=== PATIENT | female | born 1945 | race Caucasian/White ===

== ENCOUNTER 2018-05-03 12:39 | Inpatient (IN) | payer MEDICARE ==
[~2018-05-03] VITALS: Ht 152.4 cm; Wt 44.5 kg
[~2018-05-03 12:39] MED LIST: ASPIRIN EC325 M1; BUSPIRONE HCL10 MG PO; KEFLEX250 MG PO; LIBRAX; LIPITOR10 MG; MOBIC15 MG; MOBIC15 MG PO; NORVASC2.5 MG; ORADENT 0.1% DEN5 G1; PROAIR HFA8.5 GM; SYNTHROID50 MCG PO; TYLENOL EX-STR500 M2; TYLENOL325 MG; VALIUM10 MG PO; ZANAFLEX4 M1 PO
[2018-05-03 13:23] LABS: HEMOGLOBIN 14.1 gm/dL (12.0-15.0); MCH 31.7 pg (26.0-34.0); MCHC 33.5 g/dL (28.0-37.0); MCV 94.8 fL (80.0-100.0); MPV 7.9 fl. (7.2-11.1); RBC 4.43 mil/uL (4.20-5.00); RDW-CV 11.8 % (10.5-14.5); WBC 11.7 thou/uL (4.0-11.0)
[2018-05-03 13:42] LABS: ALBUMIN 3.7 g/dL (3.4-5.0); ALKALINE PHOSPHATASE 73 U/L (46-116); ANION GAP 4 mmol/L (7-16); BUN 14 mg/dL (7-18); CALCIUM 8.9 mg/dL (8.5-10.1); CHLORIDE 97 mmol/L (98-107); CO2 31 mmol/L (21-32); CREATININE 0.7 mg/dL (0.6-1.3); GLUCOSE 108 mg/dL (70-99); MAGNESIUM 1.8 mg/dL (1.8-2.4); POTASSIUM 3.5 mmol/L (3.5-5.1); SGOT 53 U/L (15-37); SGPT 56 U/L (30-65); SODIUM 132 mmol/L (136-145); TOTAL BILIRUBIN 0.5 mg/dL (<0.1-1.0); TOTAL PROTEIN 6.9 g/dL (6.4-8.2); TROPONIN-I LEVEL <0.06 ng/mL (<0.06)
--- NOTE | 2018-05-03 14:22 | NUR ---
Pt is A&O. Resides at home alone. Independent with ADLs, Pt stated that she continues to drive. A friend assists with cleaning and she either eats out or prepares freezer meals. Pt also receives Meals on Wheels. Shaista does grocery shopping. Pt uses a cane for mobility. No hx of or SNF. Goal is to return home at nm. Following.
[2018-05-03 16:14] VITALS: BP 139/48
[2018-05-03] MEDS ORDERED: CENTRUM SILVER1 EAC4 PO (16:48)
[2018-05-03] MEDS ORDERED: FIBER0.4 GM (16:49)
[2018-05-03] MEDS ORDERED: ZANTAC 150MG T150 MG PO (16:50)
--- NOTE | 2018-05-03 17:17 | NUR ---
PT ADMITTED FROM GI LAB AFTER COLONOSCOPY/EGD WITH BRADYCARDIA AND 2ND DEGREE HEART BLOCK. HRIR 45, TELE MOBITZ II. PT DENIES PAIN OR SOA. REPORTS FATIGUE. PT ORIENTED TO ROOM, PT ABLE TO MAKE NEEDS KNOWN, CALL LIGHT IN REACH
[2018-05-03 21:30] VITALS: BP 161/71
[2018-05-04] VITALS (11 sets, daily range): BP systolic 92–154; BP diastolic 47–63
--- NOTE | 2018-05-04 05:06 | NUR ---
ASSUMED PT CARE AT 1930, PT IS A&OX4. PT IS TRACING 2ND DEGREE TYPE 2 HEART BLOCK. ON RA SATTING MID TO HIGH 90'S. PT DENIES ANY PAIN OR NEEDS AT THIS TIME. PT IS NPO FOR PENDING PACEMAKER PLACEMENT. PT IS STILL "UNSURE IF SHE WANTS THE PROCEDURE" PT WILL SPEAK WITH REMEDIATION CONSULTANT IN THE AM. BED IN LOW POSITION, CALL LIGHT IN REACH, BED ALARM ON, YELLOW ARM BAND AND SOCKS IN PLACE. HOURLY ROUNDING COMPLETED FOR PT SAFETY.
--- NOTE | 2018-05-04 09:24 | NUR ---
ASSUMED RESPONSIBILITY OF PT THIS AM PT IS ALERT AND ORIENTED SOME FORGETFULNESS KIND OF AN 'ODD' BEHAVIOR PLAN FOR PACEMAKER THIS AFTERNOON 2ND DEGREE ABEBA ON THE MONITOR MARY DENIES ANY PAIN CALL LIGHT IN REACH SBA WITH A CANE
--- NOTE | 2018-05-04 18:02 | NUR ---
PT IS DOWN IN MANAGING CONSULTANT FOR A PACEMAKER PLACEMENT FAMILY AT BEDSIDE NO CONCERNS AT THIS TIME NEW IV TO LFA 18G INSERTED PT WITH INCREASED NEEDS THROUGHOUT DAY AND VERY FORGETFUL NEEDS REINFORCEMENT CONTINUALLY WITH EDUCATION
[2018-05-04] MEDS ORDERED: TYLENOL EXTRA500 MG PO (21:41)
[2018-05-05] VITALS (7 sets, daily range): BP systolic 113–146; BP diastolic 61–73
--- NOTE | 2018-05-05 05:37 | NUR ---
ASSUMED PT CARE AT 1930, PT IS A&OX4, SHE CAN BE FORGETFULL AT TIMES. PT IS MPOST PACEMAKER PLACEMENT. LEFT ARM SLING IN PLACE. PCAEMAKER SITE IS [facility]. PT IS TRACING VPACED ON THE MONITOR, ON RA SATTING MID TO HIGH 90'S. PT C/O PAIN, PRN PAIN MEDICATIONS GIVEN PER NOV. BED IN LOW POSITION, CALL LIGHT IN REACH, BED ALARM ON, YELLOW ARM BAND AND SOCKS IN PLACE. HOURLY ROUNDING COMPLETED FOR PT SAFETY.
--- NOTE | 2018-05-05 11:47 | NUR ---
RECEIVED REPORT FROM RALF VALENZUELA. ASSUMED CARE OF PT AROUND 0730. PT A&OX4, ANXIOUS. VSS. O2 SAT 92% ON RA. SPLICER OPERATOR IN PLACE TRACING VPACED WITH 1ST DEGREE. AM ASSESSMENT AND VITALS COMPLETED CHARTED. PT REPORTS LEFT SHOULDER AND NECK PAIN THAT IS BEING MANAGED WITH PO PAIN MEDICAITON. PT STATES SHE LIKES TO TAKE HER TYLENOL "ON A SCHEDULE". DENIES NEED FOR INTERVENTION FOR PAIN AT THIS TIME. CARDIOLOGY HAS SIGNED OFF ON PT - PT HOPING TO GO HOME THIS AFTERNOON. LEFT CHEST PACEMAKER INSERTION SITE IS CDI, SLIGHTLY TENDER. BRUISING NOTED. LEFT ARM SLING IN PLACE. PT UP WITH SBA SEVERAL TIMES THIS AM TO USE THE TOILET AND HAVE BM. PT CURRENTLY RESTING IN BED. CALL LIGHT IS WITHIN REACH. HOURLY ROUNDING PERFORMED. FALL PRECAUTIONS IN PLACE. WCTM.
[2018-05-05 18:15] LABS: URINE BILIRUBIN NEGATIVE (Negative); URINE BLOOD 1+ (Negative); URINE CLARITY CLEAR; URINE COLOR YELLOW; URINE GLUCOSE-RANDOM NEGATIVE (Negative); URINE KETONES NEGATIVE (Negative); URINE NITRITE-REFLEX NEGATIVE (Negative); URINE PROTEIN NEGATIVE (Negative); URINE UROBILINOGEN 0.2 E.U./dl (0.2-1.0)
[2018-05-05 18:16] LABS: URINE LEUKOCYTES-REFLEX 2+ (Negative)
[2018-05-05 18:23] LABS: BACTERIA-REFLEX 1-9 Few /HPF (None Seen); CRYSTALS None Seen /LPF (None Seen); HYALINE CASTS 0-3 Few /LPF (None Seen); SQUAMOUS 4-10 Moderate /LPF (0-3); URINE RBC 3-10 Few /HPF (0-2); URINE WBC-REFLEX 0-5 Rare /HPF (0-5)
--- NOTE | 2018-05-05 19:00 | NUR ---
VSS. PT REMAINS A&O X4. CAN RUNNER REMAINS IN PLACE WITH NO CHANGES THIS SHIFT. UA OBTAINED AND SENT TO LAB. SEE RESULTS. PT UP FREQUENTLY WITH ASSIST X1 TO USE THE BATHROOM; FREQUENT STRESS INCONTINENCE NOTED. DAUGHTER VISITED THIS AFTERNOON. LEFT CHEST DRESSING REMAINS CDI. CARDIOLOGY STATED THAT PT NO LONGER NEEDS TO USE LEFT ARM SLING. PT EATING AND DRINKING WITHOUT ISSUE. PT RECEIVED PRN TYLENOL THIS AFTERNOON FOR NECK AND SHOULDER PAIN WITH RELIEF. PT ALSO RECEIVED PRN VALIUM. PT CURRENTLY RESTING IN BED. CALL LIGHT IS WITHIN REACH. FALL PRECAUTIONS ARE IN PLACE. HOURLY ROUNDING PERFORMED. WCTM FOR DURATION OF SHIFT.
[2018-05-06] VITALS: BP 121/59
[2018-05-06 04:40] VITALS: BP 164/85
[2018-05-06 05:06] LABS: HEMATOCRIT 43.4 % (37.0-47.0); HEMOGLOBIN 14.6 gm/dL (12.0-15.0); MCH 32.3 pg (26.0-34.0); MCHC 33.7 g/dL (28.0-37.0); MCV 95.6 fL (80.0-100.0); MPV 7.8 fl. (7.2-11.1); RBC 4.54 mil/uL (4.20-5.00); RDW-CV 11.8 % (10.5-14.5)
[2018-05-06 05:16] LABS: ALBUMIN 3.3 g/dL (3.4-5.0); CALCIUM 8.7 mg/dL (8.5-10.1); CREATININE 0.7 mg/dL (0.6-1.3); MAGNESIUM 1.8 mg/dL (1.8-2.4); POTASSIUM 3.4 mmol/L (3.5-5.1); TOTAL BILIRUBIN 0.4 mg/dL (<0.1-1.0); TOTAL PROTEIN 6.2 g/dL (6.4-8.2)
--- NOTE | 2018-05-06 05:21 | NUR ---
ASSUMED CARE OF PT AT 1900. PT IS ALERT AND ORIENTED. VSS. PERRLA. PT IS UP WITH 1 ASSIST. PT IS VPACED. PT IS SLEEPING QUIETLY IN BED. RESPIRATIONS ARE EVEN AND NONLABORED. WILL CONTINUE TO MONITOR PT.
[2018-05-06 08:00] VITALS: BP 132/62
[2018-05-06 11:57] VITALS: BP 116/64
[2018-05-06] MEDS ORDERED: ACETAMINOPHEN-1 EAC1 PO (15:49)
--- NOTE | 2018-05-06 16:23 | NUR ---
RECEIVED REPORT FROM TAMICA VALENZUELA. ASSUMED CARE OF PT AROUND 0730. PT A&O X4, ANXIOUS. VSS. O2 SAT 93% ON RA. TRANSCRIPTION IN PLACE TRACING VPACED WITH FIRST DEGREE AV BLOCK. AM ASSESSMENT AND VITALS COMPLETED CHARTED. IV TO LEFT FA INTACT AND SALINE LOCKED. PT REPORTED NECK AND SHOULDER PAIN THAT WAS MANAGED WITH PO PAIN MEDICATION PER PT REQUEST. LEFT CHEST PACEMAKER INSERTION SITE CDI, NO SIGNS OR SYMPTOMS OF INFECTION. PT WORKED WITH PHYSICAL THERAPY THIS SHIFT AND WAS CLEARED FOR INDEPENDENT LIVING. PT EATING AND DRINKING WITHOUT ISSUE. AMBULATING TO BATHROOM WITH SBA TO VOID, NO ISSUES. PT ANXIOUS TO GO HOME, HAS BEEN TALKING WITH FAMILY ON THE PHONE. DISCHARGE ORDERS RECEIVED. DISCHARGE COMPLETED DOCUMENTED. DISCHARGE SUMMARY, SCRIPT, AND CARE NOTES GONE OVER WITH PT. PT COMMUNICATES UNDERSTANDING. ALL BELONGINGS GATHERED AND SENT HOME WITH THE PT. IV AND TRANSCRIPTION REMOVED. PT AWARE OF F/U APPOINTMENTS WITH CARDIOLOGY AND PCP. DISCHARGE CARE NOTES GIVEN ABOUT NEW PACEMAKER. PT COMMUNICATES UNDERSTANDING. POTASSIUM REPLACED PRIOR TO PT LEAVING. PT LEFT UNIT IN WC WITH NURSING STAFF. PT LEFT HOSPITAL IN CAR WITH SON.
--- NOTE | 2018-05-07 10:26 | EKG ---
[place] [address] ELECTROCARDIOGRAM REPORT Name: DEJUAN ESPINOZARHONDA Charles Room: [address] DIS IN M.R.#: [id number] Admission: 05/03/18 Attend Phys: Terell Champagne Discharge: 05/06/18 Date of : 45 Report #: [id number] THIS REPORT FOR: //name// [facility] Test Date: 2018-05-05 Test Time: 04:26:42 Pat Name: MACHELLE ESPINOZA Department: Room: [address] Gender: F Supervisor Cabinetmaker: : 1945 Requested By: Reji Jolly Order Number: [id number] Amado MD: Jose Dominguez Measurements Intervals [place] Rate: 74 P: 70 AR: 226 QRS: 267 QRSD: 129 T: 82 QT: 396 QTc: 440 Interpretive Statements Atrial-sensed ventricular-paced complexes No further analysis attempted due to paced rhythm Compared to ECG 12/29/2015 08:30:45 Ventricular pacing is noted Electronically Signed On 05-07-2018 10:26:25 CDT by Jose Dominguez [email or web address] <ELECTRONICALLY SIGNED> By: Jose Dominguez MD, [facility] 05/07/18 1026 0426 0426 Jose Dominguez MD, [facility] /EPI
--- NOTE | 2018-05-07 10:27 | EKG ---
[place] [address] ELECTROCARDIOGRAM REPORT Name: MACHELLE ESPINOZA Room: [address] DIS IN M.R.#: [id number] Admission: 05/03/18 Attend Phys: Terell Champagne Discharge: 05/06/18 Date of : 45 Report #: [id number] THIS REPORT FOR: //name// [facility] Test Date: 2018-05-05 Test Time: 08:56:00 Pat Name: MACHELLE ESPINOZA Department: Room: [address] Gender: F Chimney Builder Helper: : 1945 Requested By: Reji Jolly Order Number: [id number] Amado MD: Jose Dominguez Measurements Intervals [place] Rate: 62 P: 70 MD: 217 QRS: 268 QRSD: 134 T: 81 QT: 467 QTc: 475 Interpretive Statements A-V dual-paced rhythm No further analysis attempted due to paced rhythm Compared to ECG 12/29/2015 08:30:45 No significant change Electronically Signed On 05-07-2018 10:27:07 CDT by Jose Dominguez [email or web address] <ELECTRONICALLY SIGNED> By: Jose Dominguez MD, [facility] 05/07/18 1027 0856 0856 Jose Dominguez MD, [facility] /EPI
--- NOTE | 2018-05-08 16:51 | CARD ---
[address] [address] CARDIAC CATH REPORT Name: MACHELLE ESPINOZA Melvin Room: [address] IN .R.#: [id number] Admission: 05/03/18 Attend Phys: Terell Champagne Discharge: 05/06/18 Date of : 45 Report #: [id number] THIS REPORT FOR: //name// APPROVED REPORT Study performed: 05/04/2018 16:03:55 Patient Status: In-Patient Room #: Event Personnel: Reji Jolly Maintenance Mechanic Technician, Laquita Abarca RN Personnel Research Scientist, Mina Antony (R) Monitor, Elsa Beal Scrub Exam: Insertion of Dual Chamber Permanent Pacemaker Indications: 2nd Degree Mobitz II The patient is a 72 year-old female with a history of type II second-degree AV block with symptomatic bradycardia. Conscious Sedation Start time: 17:22 End Time: 18:22 Fentanyl 100 mcg Versed 2 mg Implanted Devices: Biotronik Francheska Rai, serial #[id number] dual chamber pacemaker Biotronik Solia S 45, serial #[id number] atrial lead Biotronik Solia S 53, serial #[id number] ventricular lead Procedure The patient underwent informed consent. We discussed the details of the procedure including the risks, which include, but not limited to bleeding, infection, vascular damage, cardiac perforation, and pneumothorax. She understood these risks and was willing to proceed. As such, she was brought to the EP/Cardiac Catheterization laboratory in a fasting and sedated state and prepped and draped in a sterile fashion, received IV antibiotics prior to initiation of the procedure and a venogram was performed showing patency of the left axillary vein. The patient underwent conscious sedation, with no related complications. The patient was brought to the EP/Cardiac Catheterization laboratory and the left chest and shoulder were prepped and draped in a sterile manner. During this case, Fluoroscopy and visipaque 20cc were used for imaging. The left subclavian region was infiltrated with 2% [place] [address] CARDIAC CATH REPORT Name: MACHELLE ESPINOZA Room: [address]#: [id number] Admission: 05/03/18 Attend Phys: Terell Champagne Discharge: 05/06/18 Date of : 45 Report #: [id number] subcutaneous anesthesia. A transverse incision was made in the left upper chest cavity. The subcutaneous pocket was formed via blunt dissection. Percutaneous venous access was achieved and an introducer sheath was inserted into the left Subclavian vein. Sheaths were positions using the modified Seldinger technique Through the introducer sheaths the atrial and ventricular lead wires were positioned in the right atrial appendage and right ventricular apex respectively. Utilizing fluoroscopic guidance, the atrial and ventricular lead wires were advanced over the wires and positioned in the right atria and right ventricle respectively. Capturing and sensing thresholds were verified. Electrode Parameters P Wave: 3.0 mV R Wave: 9.6 mV Atrial Threshold: 0.6 V at 0.40 ms Ventricular Threshold: 0.9 V at 0.40 ms Atrial Resistance: 765 ohms Ventricular Resistance: 497 ohms Dual Chamber The atrial and ventricular leads were then secured using 0 silk sutures. The subcutaneous pocket was irrigated with ancef antibiotic solution.The atrial and ventricular leads were attached to the appropriate receptacles on the pulse generator and set screws firmly tightened to insure adequate contact and stability. The lead and pulse generator were placed into the subcutaneous pocket. Sharp and sponge counts were confirmed to be correct. At this time the pocket was closed subcutaneously with a 2.0 Vicryl and the skin was closed with a 4.0 Vicryl. The operative site was dressed in sterile fashion with steri strips and the patient was transferred to the floor in stable condition. Complications The patient tolerated the procedure well and there were no complications associated with the procedure. Findings Specimens Removed: No Conclusion 1. Symptomatic type II second-degree AV block 2. Successful placement [place] [address] CARDIAC CATH REPORT Name: OLGAMACHELLE R Room: [address] IN M.R.#: [id number] Admission: 05/03/18 Attend Phys: Terell Champagne Discharge: 05/06/18 Date of : 45 Report #: [id number] Recommendations 1. Follow-up site check in one week 2. Follow-up pacemaker check in one to 2 months <ELECTRONICALLY SIGNED> By: Reji Jolly MD, FACC 05/08/181649 49 49Michaejo-ann Jolly MD, FACC /INF
== END 2018-05-06 16:10 | disposition home or self-care (01) | DRG 243 ==
LOC: M.2W 12:39
PROVIDERS: Family Medicine; ADMIT Internal Medicine
PROC: 0JH606Z Insertion of Pacemaker, Dual Chamber into Chest Subcutaneous Tissue and Fascia, Open Approach (ICD-10-PCS; principal; 2018-05-04)
PROC: 02H63JZ Insertion of Pacemaker Lead into Right Atrium, Percutaneous Approach (ICD-10-PCS; principal; 2018-05-04)
PROC: 02HK3JZ Insertion of Pacemaker Lead into Right Ventricle, Percutaneous Approach (ICD-10-PCS; principal; 2018-05-04)
DX: I44.1 Atrioventricular block, second degree (principal); M62.82 Rhabdomyolysis; I10 Essential (primary) hypertension; E78.5 Hyperlipidemia, unspecified; F41.9 Anxiety disorder, unspecified; M19.90 Unspecified osteoarthritis, unspecified site; M81.0 Age-related osteoporosis without current pathological fracture; M51.36 Other intervertebral disc degeneration, lumbar region; R53.82 Chronic fatigue, unspecified; F17.210 Nicotine dependence, cigarettes, uncomplicated; D72.829 Elevated white blood cell count, unspecified; R73.9 Hyperglycemia, unspecified; I34.1 Nonrheumatic mitral (valve) prolapse; E03.9 Hypothyroidism, unspecified; E87.6 Hypokalemia; Z88.6 Allergy status to analgesic agent; Z88.1 Allergy status to other antibiotic agents; Z88.8 Allergy status to other drugs, medicaments and biological substances; Z90.49 Acquired absence of other specified parts of digestive tract; Z86.73 Personal history of transient ischemic attack (TIA), and cerebral infarction without residual deficits; Z79.82 Long term (current) use of aspirin; Z79.899 Other long term (current) drug therapy

== ENCOUNTER → 2019-09-11 | Outpatient (CLI) | payer MEDICARE ==
[~2019-09-11] MED LIST changes: +ACETAMINOPHEN-1 EAC1 PO; +CENTRUM SILVER1 EAC4 PO; +FIBER0.4 GM; +TYLENOL EXTRA500 MG PO; +ZANTAC 150MG T150 MG PO
[2019-09-11 10:27] LABS: ABSOLUTE BASOPHILS 0.1 thou/uL (0.0-0.2); ABSOLUTE EOSINOPHILS 0.2 thou/uL (0.0-0.7); ABSOLUTE LYMPHOCYTES 1.4 thou/uL (0.8-5.3); ABSOLUTE MONOCYTES 0.5 thou/uL (0.0-1.2); ABSOLUTE NEUTROPHILS 5.3 thou/uL (1.6-8.1); BASOPHILS 0.8 %; EOSINOPHILS 2.4 %; HEMATOCRIT 42.9 % (37.0-47.0); HEMOGLOBIN 14.9 gm/dL (12.0-15.0); MCH 33.1 pg (26.0-34.0); MCHC 34.6 g/dL (28.0-37.0); MCV 95.5 fL (80.0-100.0); MONOCYTES 6.6 %; NUCLEATED RBCS 0 /100WBC; PLATELET COUNT* 291 thou/uL (150-400); POLYS 71.2 %; RBC 4.49 mil/uL (4.20-5.00); RDW-CV 11.9 % (10.5-14.5); WBC 7.4 thou/uL (4.0-11.0)
[2019-09-11 10:51] LABS: ALBUMIN 3.9 g/dL (3.4-5.0); ALKALINE PHOSPHATASE 85 U/L (46-116); ANION GAP 6 mmol/L (7-16); BUN 22 mg/dL (7-18); CHLORIDE 99 mmol/L (98-107); CO2 30 mmol/L (21-32); CREATININE 0.9 mg/dL (0.6-1.3); GLUCOSE 95 mg/dL (70-99); SGOT 27 U/L (15-37); SGPT 49 U/L (30-65); SODIUM 135 mmol/L (136-145); TOTAL BILIRUBIN 0.3 mg/dL (<0.1-1.0); TOTAL PROTEIN 7.5 g/dL (6.4-8.2)
[2019-09-11 11:01] LABS: CHOLESTEROL 146 mg/dL (<200); HDL CHOLESTEROL 66 mg/dL (>40); LDL CHOLESTEROL 69 mg/dL (<100); SERUM ASSESSMENT Clear; TC:HDL 2.2 Ratio (Not establshd); TRIGLYCERIDE 55 mg/dL (<150); VLDL 11 mg/dL (<40)
--- NOTE | 2019-09-11 12:48 | 2DMMODE ---
[place] [address] 2 D/M-MODE ECHOCARDIOGRAM Name: OLGAMACHELLE R Room: [facility]#: [id number] Admission: 09/11/19 Attend Phys: Kristy Chino RN Discharge: Date of : 45 Date of Service: 09/11/19 1248 Report #: [id number] THIS REPORT FOR: //name// ADDENDUM APPROVED REPORT Study performed: 09/11/2019 10:22:36 EXAM: Comprehensive 2D, Doppler, and color-flow Echocardiogram Patient Location: Out-Patient BSA: 1.39 HR: 108 bpm BP: 120/70 mmHg Other Information Study Quality: Fair Technically limited study due to inability to position patient. Indications Mitral Valve Disease 2D Dimensions IVSd: 10.57 (7-11mm) LVOT Diam: 19.06 (18-24mm) LVDd: 36.82 mm PWd: 10.09 (7-11mm) Ascending Ao: 23.82 (22-36mm) LVDs: 25.49 (25-40mm) Aortic Root: 19.73 mm Volumes Left Atrial Volume (Systole) LA ESV Index: 10.60 mL/m2 Aortic Valve AoV Peak Stevan.: 0.98 m/s AO Peak Gr.: 3.82 mmHg LVOT Max P.40 mmHg AO Mean Gr.: 2.55 mmHg LVOT Mean P.67 mmHg LVOT Max V: 0.59 m/s AO V2 VTI: 16.44 cm LVOT Mean V: 0.38 m/s JARET (VTI): 1.72 cm2 LVOT V1 VTI: 9.94 cm Mitral Valve MV Decel. Time: 149.18 ms MV E Max Stevan.: 0.85 m/s MV PHT: 43.26 [place] [address] 2 D/M-MODE ECHOCARDIOGRAM Name: MACHELLE ESPINOZA Room: [facility]#: [id number] Admission: 09/11/19 Attend Phys: Kristy Chino RN Discharge: Date of : 45 Date of Service: 09/11/19 1248 Report #: [id number] MVA (PHT): 5.09 cm2 TDI E/Lateral E': 4.47 E/Medial E': 6.07 Medial E' Stevan.: 0.14 m/s Lateral E' Stevan.: 0.19 m/s Pulmonary Valve PV Peak Stevan.: 0.83 m/s PV Peak Gr.: 2.76 mmHg Tricuspid Valve RAP Estimate: 5.00 mmHg TR Peak Gr.: 26.02 mmHg RVSP: 31.02 mmHg PA Pressure: 31.02 mmHg Left Ventricle The left ventricle is normal size. Paradoxical septal motion consistent with an intraventricular conduction defect Mild concentric left ventricular hypertrophy. Left ventricular systolic function is normal. The left ventricular ejection fraction is within the normal range. LVEF is 55-60%. This study is not technically sufficient to allow evaluation of the LV diastolic function. Right Ventricle The right ventricle is normal size. The right ventricular systolic function is normal. Atria The left atrium size is normal. The right atrium size is normal. Aortic Valve The aortic valve is normal in structure. No aortic regurgitation is present. There is no aortic valvular stenosis. Mitral Valve The mitral valve is normal in structure. Mild mitral regurgitation. No evidence of mitral valve stenosis. Tricuspid Valve The tricuspid valve is normal in structure. Mild tricuspid regurgitation. estimated pa pressure 40 mm Hg Pulmonic Valve Pulmonic valve is not well visualized. There is no pulmonic [place] [address] 2 D/M-MODE ECHOCARDIOGRAM Name: MACHELLE ESPINOZA Room: [facility]#: [id number] Admission: 09/11/19 Attend Phys: Kristy Chino RN Discharge: Date of : 45 Date of Service: 09/11/19 1248 Report #: [id number] Great Vessels The aortic root is normal in size. IVC is normal in size and collapses >50% with inspiration. Pericardium There is no pericardial effusion. <Conclusion> LVEF is 55-60%. Mild concentric left ventricular hypertrophy. Mild mitral regurgitation. <ELECTRONICALLY SIGNED> By: Clarence Heart MD, FACC 09/11/19 1248 1248 1248 Clarence Heart MD, FAC /INF
== END ==
LOC: M.CRD 09:40 → M.LAB 09:40 → M.CRD 10:00
PROVIDERS: Registered Nurse
DX: I08.1 Rheumatic disorders of both mitral and tricuspid valves (principal); E78.5 Hyperlipidemia, unspecified; I11.9 Hypertensive heart disease without heart failure; Z95.0 Presence of cardiac pacemaker

== ENCOUNTER → 2020-09-23 | Outpatient (CLI) | payer MEDICARE ==
[2020-09-23 11:05] LABS: ABSOLUTE BASOPHILS 0.1 thou/uL (0.0-0.2); ABSOLUTE EOSINOPHILS 0.3 thou/uL (0.0-0.7); ABSOLUTE LYMPHOCYTES 1.5 thou/uL (0.8-5.3); ABSOLUTE MONOCYTES 0.5 thou/uL (0.0-1.2); ABSOLUTE NEUTROPHILS 6.4 thou/uL (1.6-8.1); EOSINOPHILS 3.8 %; HEMATOCRIT 46.3 % (37.0-47.0); HEMOGLOBIN 15.5 gm/dL (12.0-15.0); LYMPHOCYTES 16.9 %; MCH 32.4 pg (26.0-34.0); MCHC 33.4 g/dL (28.0-37.0); MCV 97.2 fL (80.0-100.0); MONOCYTES 5.5 %; MPV 7.2 fl. (7.2-11.1); NUCLEATED RBCS 0 /100WBC; PLATELET COUNT* 333 thou/uL (150-400); POLYS 72.8 %; RBC 4.77 mil/uL (4.20-5.00); RDW-CV 11.6 % (10.5-14.5); WBC 8.8 thou/uL (4.0-11.0)
[2020-09-23 11:21] LABS: ALBUMIN 4.3 g/dL (3.4-5.0); ALKALINE PHOSPHATASE 98 U/L (46-116); ANION GAP 11 mmol/L (7-16); BUN 28 mg/dL (7-18); CALCIUM 9.4 mg/dL (8.5-10.1); CHLORIDE 102 mmol/L (98-107); CHOLESTEROL 151 mg/dL (<200); CO2 29 mmol/L (21-32); GLUCOSE 93 mg/dL (70-99); HDL CHOLESTEROL 68 mg/dL (>40); LDL CHOLESTEROL 73 mg/dL (<100); SGOT 32 U/L (15-37); SGPT 53 U/L (30-65); SODIUM 142 mmol/L (136-145); TC:HDL 2.2 Ratio (Not establshd); TOTAL BILIRUBIN 0.4 mg/dL (<0.1-1.0); TOTAL PROTEIN 8.1 g/dL (6.4-8.2); TRIGLYCERIDE 50 mg/dL (<150); VLDL 10 mg/dL (<40)
[2020-09-23 11:24] LABS: SERUM ASSESSMENT Clear
[2020-09-23 22:06] LABS: LDL (DIRECT) CHOL 82 mg/dL (0-99)
== END ==
LOC: M.LAB 10:21
PROVIDERS: ATTEND Family Medicine
DX: I10 Essential (primary) hypertension (principal); E78.00 Pure hypercholesterolemia, unspecified; E03.9 Hypothyroidism, unspecified; R53.83 Other fatigue

== ENCOUNTER → 2021-02-08 | Outpatient (CLI) | payer MEDICARE ==
[2021-02-08 13:03] LABS: HEMATOCRIT 40.7 % (37.0-47.0); HEMOGLOBIN 13.9 gm/dL (12.0-15.0); MCH 32.9 pg (26.0-34.0); MCHC 34.3 g/dL (28.0-37.0); MPV 7.1 fl. (7.2-11.1); RBC 4.24 mil/uL (4.20-5.00); RDW-CV 11.8 % (10.5-14.5)
== END ==
LOC: M.LAB 12:32
PROVIDERS: ATTEND Internal Medicine Cardiovascular Disease
DX: I10 Essential (primary) hypertension (principal)

== ENCOUNTER 2021-03-04 12:33 | Inpatient (IN) | payer MEDICARE ==
[~2021-03-04] VITALS: Ht 152.4 cm; Wt 43.1 kg
[2021-03-04 12:38] VITALS: BP 138/70
[2021-03-04 13:21] LABS: ABSOLUTE MONOCYTES 1.1 thou/uL (0.0-1.2); ABSOLUTE NEUTROPHILS 19.5 thou/uL (1.6-8.1); BASOPHILS 0.2 %; HEMATOCRIT 46.5 % (37.0-47.0); HEMOGLOBIN 15.7 gm/dL (12.0-15.0); LYMPHOCYTES 4.7 %; MCH 32.6 pg (26.0-34.0); MCHC 33.8 g/dL (28.0-37.0); MCV 96.4 fL (80.0-100.0); MPV 7.8 fl. (7.2-11.1); NUCLEATED RBCS 0 /100WBC; PLATELET COUNT* 283 thou/uL (150-400); POLYS 90.1 %; RBC 4.82 mil/uL (4.20-5.00); WBC 21.7 thou/uL (4.0-11.0)
[2021-03-04] MEDS ORDERED: NORVASC5 MG PO (13:26)
[2021-03-04] MEDS ORDERED: BUSPAR30 MG PO (13:27)
[2021-03-04 13:28] LABS: CALCIUM 9.4 mg/dL (8.5-10.1); CREATININE 1.3 mg/dL (0.6-1.3); POTASSIUM 4.3 mmol/L (3.5-5.1)
[2021-03-04] MEDS ORDERED: VALIUM10 MG PO (13:29)
[2021-03-04] MEDS ORDERED: KEFLEX250 MG/5 M PO (13:30)
[2021-03-04] MEDS ORDERED: PROAIR HFA8.5 GM INH (13:30)
[2021-03-04] MEDS ORDERED: ZANAFLEX4 M1 PO (13:31)
[2021-03-04 13:46] LABS: TOTAL BILIRUBIN 0.7 mg/dL (<0.1-1.0); TOTAL PROTEIN 7.6 g/dL (6.4-8.2)
--- NOTE | 2021-03-04 13:48 | EKG ---
[place] [address] ELECTROCARDIOGRAM REPORT Name: MACHELLE ESPINOZA Room: [facility]#: [id number] Admission: 03/04/21 Attend Phys: Discharge: Date of : 45 Date of Service: 03/04/21 1253 Report #: [id number] THIS REPORT FOR: //name// [facility] ED Test Date: 2021-03-04 Test Time: 12:53:33 Pat Name: MACHELLE ESPINOZA Department: Room: Gender: F Hospice Manager: : 1945 Requested By: Saleem Law Order Number: [id number] MD: Clarence Heart Measurements Intervals [place] Rate: 109 P: DC: QRS: 263 QRSD: 124 T: 75 QT: 435 QTc: 587 Interpretive Statements Afib/flut and V-paced complexes No further analysis attempted due to paced rhythm Baseline wander in lead(s) II,III,aVF atrial fibrillation is now noted Electronically Signed On 03-04-2021 13:48:04 CDT by Clarence Heart [email or web address] <ELECTRONICALLY SIGNED> By: Clarence Heart MD, [facility] 03/04/21 1348 1253 1253 Clarence Heart MD, [facility] /EPI
--- NOTE | 2021-03-04 16:32 | NUR ---
ABRASION NOTED ON TAILBONE WITH BRUISING; CLEANED WITH 30 ML NS AND NON ADHERING DRESSING APPLIED. PT TOLERATED ACTIVITY WELL
[2021-03-04 16:35] LABS: URINE BLOOD TRACE (Negative); URINE CLARITY CLEAR; URINE COLOR YELLOW; URINE GLUCOSE-RANDOM NEGATIVE (Negative); URINE KETONES 1+ (Negative); URINE LEUKOCYTES-REFLEX NEGATIVE (Negative); URINE NITRITE-REFLEX NEGATIVE (Negative); URINE PROTEIN 1+ (Negative); URINE SPECIFIC GRAVITY >= 1.030 (1.005-1.030); URINE UROBILINOGEN 0.2 E.U./dl (0.2-1.0)
[2021-03-04 16:39] LABS: ICTOTEST (BILI CONFIRMATORY) Negative (Negative); URINE BILIRUBIN 1+ (Negative)
[2021-03-04 17:53] VITALS: BP 138/60
[2021-03-04 18:34] VITALS: BP 152/46
[2021-03-04 18:44] VITALS: BP 152/46
[2021-03-04 20:00] VITALS: BP 131/55
[2021-03-04] MEDS ORDERED: FISH OIL 1,0001 EAC9 PO (22:23)
[2021-03-04] MEDS ORDERED: CALCIUM500 MG PO (22:24)
[2021-03-04] MEDS ORDERED: CHILDREN'S ZYRT10 M1 PO (22:26)
[2021-03-04] MEDS ORDERED: ALLER-CHLOR4 MG PO (22:29)
[2021-03-04] MEDS ORDERED: CLOBETASOL PROP15 GM TOP (22:33)
[2021-03-04] MEDS ORDERED: TRIAMCINOLONE A15 G1 TOP (22:34)
[2021-03-05] VITALS: BP 125/74
--- NOTE | 2021-03-05 07:29 | NUR ---
Shift uneventful. Pt aox4, v-paced on telemetry, respirations unlabored on 2L NC, but diminished on ausculation. Pt is medically stable at this time.
[2021-03-05 08:00] VITALS: BP 159/66
--- NOTE | 2021-03-05 11:35 | 2DMMODE ---
[place] [address] 2 D/M-MODE ECHOCARDIOGRAM Name: MACHELLE ESPINOZA Melvin Room: [address] IN .R.#: [id number] Admission: 03/04/21 Attend Phys: Rosalina Millan, Discharge: Date of : 45 Date of Service: 03/05/21 1135 Report #: [id number] THIS REPORT FOR: cc: Mar Campoverde Christina L DO Blick,Clarence Cortes MD [facility] ~ APPROVED REPORT Study performed: 03/05/2021 09:58:13 EXAM: Comprehensive 2D, Doppler, and color-flow Echocardiogram Patient Location: In-Patient Room #: [facility] Status: routine BSA: 1.39 HR: 110 bpm BP: 159/66 mmHg Rhythm: NSR Other Information Study Quality: Excellent Technically limited study due to body habitus, suboptimal apical views. Indications CVA/TIA Echo Enhancing Agent Indication: Rule out Shunt Agent(s) / Amount(s) Used: Agitated Saline 10 cc 2D Dimensions IVSd: 8.77 (7-11mm) LVOT Diam: 19.81 (18-24mm) LVDd: 36.73 mm PWd: 8.56 (7-11mm) Ascending Ao: 27.67 (22-36mm) LVDs: 21.01 (25-40mm) Aortic Root: 29.01 mm Aortic Valve AoV Peak Stevan.: 1.25 m/s AO Peak Gr.: 6.22 mmHg LVOT Max P.12 mmHg AO Mean Gr.: 3.37 mmHg LVOT Mean P.70 mmHg LVOT Max V: 0.88 m/s AO V2 VTI: 19.40 cm LVOT Mean V: 0.62 m/[place] [address] 2 D/M-MODE ECHOCARDIOGRAM Name: MACHELLE ESPINOZA Room: [address] IN ..#: [id number] Admission: 03/04/21 Attend Phys: Rosalina Millan, Discharge: Date of : 45 Date of Service: 03/05/21 1135 Report #: [id number] JARET (VTI): 1.93 cm2 LVOT V1 VTI: 12.13 cm Pulmonary Valve PV Peak Stevan.: 1.14 m/s PV Peak Gr.: 5.17 mmHg Tricuspid Valve RAP Estimate: 5.00 mmHg TR Peak Gr.: 51.65 mmHg RVSP: 56.00 mmHg PA Pressure: 56.00 mmHg Left Ventricle The left ventricle is normal size. paradoxical septal motion There is normal left ventricular wall thickness. Left ventricular systolic function is normal. The left ventricular ejection fraction is within the normal range. LVEF is 60-65%. This study is not technically sufficient to allow evaluation of the LV diastolic function. Right Ventricle The right ventricle is normal size. The right ventricular systolic function is normal. Pacemaker lead is present in the right ventricle. Atria The left atrium size is normal. The interatrial septum is intact with no evidence for an atrial septal defect. The right atrium size is normal. Aortic Valve Mild aortic valve sclerosis. No aortic regurgitation is present. There is no aortic valvular stenosis. Mitral Valve The mitral valve is normal in structure. There is no mitral valve regurgitation noted. No evidence of mitral valve stenosis. Tricuspid Valve The tricuspid valve is normal in structure. Mild tricuspid regurgitation. estimated pa pressure 55 mm Hg Pulmonic Valve The pulmonary valve is normal in structure. There is no pulmonic valvular regurgitation. Great Vessels The aortic root is normal in size. IVC is normal in size and collapses >50% [place] [address] 2 D/M-MODE ECHOCARDIOGRAM Name: MACHELLE ESPINOZA Room: [address] IN [facility]#: [id number] Admission: 03/04/21 Attend Phys: Rosalina Millan, Discharge: Date of : 45 Date of Service: 03/05/21 1135 Report #: [id number] Pericardium There is no pericardial effusion. <Conclusion> LVEF is 60-65%. Mild aortic valve sclerosis. The interatrial septum is intact with no evidence for an atrial septal defect. Mild tricuspid regurgitation. estimated pa pressure 55 mm Hg <ELECTRONICALLY SIGNED> By: Clarence Heart MD, [facility] 03/05/21 1135 1135 1135 Clarence Heart MD, FAC /INF
[2021-03-05 11:59] LABS: ALBUMIN 3.1 g/dL (3.4-5.0); CALCIUM 7.9 mg/dL (8.5-10.1); CREATININE 1.1 mg/dL (0.6-1.3); POTASSIUM 3.7 mmol/L (3.5-5.1); TOTAL BILIRUBIN 0.4 mg/dL (<0.1-1.0); TOTAL PROTEIN 6.1 g/dL (6.4-8.2)
[2021-03-05 12:36] VITALS: BP 117/51
[2021-03-05 12:54] LABS: AMP/METHAMP Negative (Negative); BARBITURATES Negative (Negative); BENZODIAZEPINES POSITIVE (Negative); COCAINE Negative (Negative); METHADONE Negative (Negative); OPIATES Negative (Negative); PCP Negative (Negative); THC Negative (Negative)
[2021-03-05 13:02] LABS: ABSOLUTE LYMPHOCYTES 1.4 thou/uL (0.8-5.3); ABSOLUTE MONOCYTES 0.9 thou/uL (0.0-1.2); ABSOLUTE NEUTROPHILS 11.8 thou/uL (1.6-8.1); BASOPHILS 0.3 %; EOSINOPHILS 0.3 %; HEMOGLOBIN 13.5 gm/dL (12.0-15.0); LYMPHOCYTES 9.6 %; MCH 32.6 pg (26.0-34.0); MCHC 33.6 g/dL (28.0-37.0); MCV 97.1 fL (80.0-100.0); MONOCYTES 6.5 %; MPV 8.4 fl. (7.2-11.1); NUCLEATED RBCS 0 /100WBC; PLATELET COUNT* 212 thou/uL (150-400); POLYS 83.3 %; RBC 4.12 mil/uL (4.20-5.00); RDW-CV 12.1 % (10.5-14.5); WBC 14.2 thou/uL (4.0-11.0)
--- NOTE | 2021-03-05 14:57 | NUR ---
Pt is A&O. Resides at home alone. Independent. Friends and family support as needed. Pt has a cane that she can use as needed. No hx of HH or SNF. Goal is home at dc, if Pt needs HH, discuss HH choice with Pt, Pt does not think that she will need it. Echo today. Therapy evals pending
[2021-03-05 16:34] VITALS: BP 126/57
--- NOTE | 2021-03-05 18:52 | NUR ---
RECEIVED REPORT. ASSUMED CARE OF PT AROUND 0730. AM ASSESSMENT AND VITALS COMPLETED CHARTED. BILINGUAL CUSTOMER SERVICE IN PLACE. MEDS PER EMAR. DAUGHTER AT BEDSIDE MOST OF SHIFT. PT COMPLETED MULTIPLE TESTS TODAY, AWAITING RESULTS. ARRIAZA IN PLACE TO DD. TURNS Q2 HRS. TOLERATING DIET. DRESSINGS TO WOUNDS CDI. CALL LIGHT WITHIN REACH. HOURY ROUNDING PERFORMED. FALL PRECAUTIONS IN PLACE.
[2021-03-05 20:00] VITALS: BP 113/58
[2021-03-06 00:22] VITALS: BP 134/71
[2021-03-06 02:06] LABS: GLYCOHEMOGLOBIN (HGB A1C) 5.6 % (4.8-5.6)
[2021-03-06 04:57] VITALS: BP 153/76
[2021-03-06 07:10] LABS: ABSOLUTE BASOPHILS 0.1 thou/uL (0.0-0.2); ABSOLUTE EOSINOPHILS 0.2 thou/uL (0.0-0.7); ABSOLUTE LYMPHOCYTES 1.9 thou/uL (0.8-5.3); ABSOLUTE MONOCYTES 0.9 thou/uL (0.0-1.2); ABSOLUTE NEUTROPHILS 6.3 thou/uL (1.6-8.1); BASOPHILS 0.8 %; EOSINOPHILS 1.9 %; HEMATOCRIT 37.7 % (37.0-47.0); HEMOGLOBIN 12.8 gm/dL (12.0-15.0); LYMPHOCYTES 20.1 %; MONOCYTES 9.9 %; NUCLEATED RBCS 0 /100WBC; PLATELET COUNT* 197 thou/uL (150-400); POLYS 67.3 %; RBC 3.89 mil/uL (4.20-5.00); RDW-CV 12.2 % (10.5-14.5); WBC 9.4 thou/uL (4.0-11.0)
[2021-03-06 07:25] LABS: CALCIUM 8.2 mg/dL (8.5-10.1); CREATININE 0.7 mg/dL (0.6-1.3)
[2021-03-06 07:32] LABS: CHOLESTEROL 116 mg/dL (<200); HDL CHOLESTEROL 47 mg/dL (>40); LDL CHOLESTEROL 53 mg/dL (<100); TC:HDL 2.5 Ratio (Not establshd); TRIGLYCERIDE 84 mg/dL (<150); VLDL 17 mg/dL (<40)
[2021-03-06 07:33] LABS: SERUM ASSESSMENT Slight Lipemia
[2021-03-06 08:00] VITALS: BP 146/79
[2021-03-06 12:00] VITALS: BP 131/69
--- NOTE | 2021-03-06 19:23 | NUR ---
I ASSUMED CARE OF THE PATIENT AT 0700. SHE IS ALERT AND ORIENTED X4 AND IS ON BEDREST. SHE DID WORK WITH PT/OT. BED IS IN THE LOW LOCKED POSITION AND CALL LIGHT IS IN REACH. SHE IS REPOSITIONED EVERY 2 HOURS TO AVOID PRESSURE ON THE ULCERS FROM HER FALL. EXTENSIVE EDUCATION WAS GIVEN ON WHAT THE SCANS SHOW AND WHAT THE NEXT STEPS ARE. ARSALAN IS D/D. SHE IS ON THE SHOTWELD OPERATOR. WILL CONTINUE TO MONITOR.
[2021-03-06 20:00] VITALS: BP 153/76
[2021-03-07] VITALS: BP 125/54
[2021-03-07 04:08] VITALS: BP 150/76
[2021-03-07 08:30] VITALS: BP 143/76
[2021-03-07 10:25] LABS: ALBUMIN 2.8 g/dL (3.4-5.0); CALCIUM 8.3 mg/dL (8.5-10.1); CREATININE 0.8 mg/dL (0.6-1.3); POTASSIUM 3.9 mmol/L (3.5-5.1); TOTAL BILIRUBIN 0.5 mg/dL (<0.1-1.0); TOTAL PROTEIN 5.8 g/dL (6.4-8.2)
[2021-03-07 12:50] VITALS: BP 153/78
[2021-03-07 15:32] VITALS: BP 136/71
[2021-03-07 20:15] VITALS: BP 100/63
--- NOTE | 2021-03-07 20:50 | NUR ---
I ASSUMED CARE OF THE PATIENT AT 0700. SHE IS ALERT AND ORIENTED X4 AND WILL DANGLE AT THE SIDE OF THE BED. BED IS IN THE LOW LOCKED POSITION AND CALL LIGHT IS IN REACH. HOURLY ROUNDING IS COMPLETED AND PATIENT NEEDS ARE MET. PAIN IS MANAGED WITH PRN MEDS. DAUGHTER WAS AT THE BEDSIDE FOR SOME TIME TODAY. ARRIAZA IS IN PLACE AND OUTPUT IS SUBSTANTIAL. PATIENT CHOKED ON HER LUNCH AND WE OBTAINED A STAT CHEST XRAY. RESULTS WERE NORMAL. SHE IS REPOSITIONED EVERY 2 HOURS. WILL CONTINUE TO MONITOR.
[2021-03-08] VITALS: BP 100/59
[2021-03-08 04:01] LABS: ALBUMIN 2.6 g/dL (3.4-5.0); CALCIUM 8.1 mg/dL (8.5-10.1); CREATININE 0.8 mg/dL (0.6-1.3); POTASSIUM 3.5 mmol/L (3.5-5.1); TOTAL BILIRUBIN 0.4 mg/dL (<0.1-1.0); TOTAL PROTEIN 5.4 g/dL (6.4-8.2)
[2021-03-08 04:11] LABS: ABSOLUTE EOSINOPHILS 0.3 thou/uL (0.0-0.7); ABSOLUTE LYMPHOCYTES 1.5 thou/uL (0.8-5.3); ABSOLUTE MONOCYTES 0.7 thou/uL (0.0-1.2); ABSOLUTE NEUTROPHILS 4.9 thou/uL (1.6-8.1); BASOPHILS 0.6 %; EOSINOPHILS 3.6 %; HEMATOCRIT 35.8 % (37.0-47.0); HEMOGLOBIN 12.1 gm/dL (12.0-15.0); LYMPHOCYTES 20.4 %; MCH 32.3 pg (26.0-34.0); MCHC 33.9 g/dL (28.0-37.0); MCV 95.4 fL (80.0-100.0); MONOCYTES 9.5 %; MPV 7.9 fl. (7.2-11.1); NUCLEATED RBCS 0 /100WBC; PLATELET COUNT* 196 thou/uL (150-400); POLYS 65.9 %; RBC 3.75 mil/uL (4.20-5.00); RDW-CV 11.5 % (10.5-14.5); WBC 7.5 thou/uL (4.0-11.0)
[2021-03-08 06:00] VITALS: BP 145/67
[2021-03-08 08:24] VITALS: BP 139/76
[2021-03-08 12:00] VITALS: BP 132/72
--- NOTE | 2021-03-08 14:20 | NUR ---
WOUND NURSE: PATIENT SEEN TO ADDRESS WOUND ON SACRUM AND SUPERIOR BACK. SACRAL WOUND PRESENTS A RUPTURED BULLA MEASURING 5.5 X 6.0 X 0.1 CM. CONTAINS PINK EPITHELIAL TISSUE AND SMALL AMOUNT OF SEROUS DRAINAGE. CLEANSED WITH WOUND CLEANSER AND GAUZE. APPLIED EXUDERM SATIN TO THE AFFECTED AREA. RECOMMEND CHANGING DRESSING 2X/WEEK AND PRN. UPPER BACK IS CLOSED WITH INTACT, BUT THIN AND FRIABLE EPITHELIAL TISSUE. CLEANSED WT WOUND CLEANSER AND GAUZE. APPLIED MARATHON LIQUID SKIN PROTECTANT X1 TO PROTECT NEW SKIN. PATIENT REPORTING THESE ARE FRICTION WOUNDS FROM SCOOTING AROUND ON THE FLOOR AT HOME FOLLOWING A FALL. PATIENT INSTRUCTED ON MEASURES TO PROMOTE HEALING AND PREVENT FURTHER COMPLICATIONS WITH GOOD UNDERSTANDING ACHIEVED.
[2021-03-08 16:00] VITALS: BP 135/72
[2021-03-08 20:10] VITALS: BP 144/86
[2021-03-09 01:13] VITALS: BP 148/87
--- NOTE | 2021-03-09 02:27 | NUR ---
ASSUMED CARE OF PT AT 1900. PT IS ALERT AND ORIENTED. VSS. PERRLA. PT REPORTS ONGOIN LEFT HIP PAIN. PT IS IN SINUS RYTHM ON THE TELEMETRY. PT IS RESTING COMFORTABLY IN BED. RESPIRATIONS ARE EVEN AND NONLABORED. WILL CONTINUE TO MONITOR PT.
[2021-03-09 04:18] LABS: HEMATOCRIT 40.7 % (37.0-47.0); HEMOGLOBIN 13.7 gm/dL (12.0-15.0); MCH 32.1 pg (26.0-34.0); MCHC 33.8 g/dL (28.0-37.0); MCV 95.1 fL (80.0-100.0); RBC 4.27 mil/uL (4.20-5.00); RDW-CV 11.7 % (10.5-14.5); WBC 8.6 thou/uL (4.0-11.0)
[2021-03-09 04:36] LABS: CALCIUM 8.8 mg/dL (8.5-10.1); CREATININE 0.7 mg/dL (0.6-1.3); POTASSIUM 3.5 mmol/L (3.5-5.1)
[2021-03-09 06:31] VITALS: BP 171/77
[2021-03-09] MEDS ORDERED: DIAZEPAM 5 MG5 M1 PO (08:32)
[2021-03-09 10:49] VITALS: BP 138/81
[2021-03-09 12:00] VITALS: BP 127/66
--- NOTE | 2021-03-09 12:17 | NUR ---
THIS MICA MACHINE OPERATOR AGREES DOCUMENTED TREATMENT NOTE AND RECOMMENDATIONS BY DANY WANG FOR THIS DAY. LILY NORTONT
--- NOTE | 2021-03-09 12:59 | NUR ---
Plan dc to ARU later today, pending ARU consult. Therapies recommending.
[2021-03-09 16:00] VITALS: BP 109/64
[2021-03-09 17:07] LABS: GLOBULIN TOTAL 2.5 g/dL (2.2-3.9); M-SPIKE Not Observed g/dL (Not Observed)
--- NOTE | 2021-03-09 18:57 | NUR ---
VSS. O2 remains at 2L per NC. O2 sats 83% on RA. Pt states she had "good BM" today. Charles remains, draining yellow urine with some sediment. Up to chair and ambulated to bathroom with assist X1, gait belt, and walker. Awaiting approval for Rehab. Will continue to monitor.
[2021-03-09 19:30] VITALS: BP 134/76
--- NOTE | 2021-03-10 03:10 | NUR ---
ASSUMED CARE OF PT AT 1900. PT IS ALERT AND ORIENTED. VSS. PERRLA. PT IS ON 1 LITER O2. PT IS V PACED ON THE TELEMETRY. PT IS RESTING COMFORTABLY IN BED. RESPIRATIONS ARE EVEN AND NONLABORED. WILL CONTINUE TO MONITOR PT.
[2021-03-10 05:09] LABS: APTT 27.2 Seconds (25.0-31.3); INR 0.9
[2021-03-10 05:17] LABS: ABSOLUTE BASOPHILS 0.1 thou/uL (0.0-0.2); ABSOLUTE EOSINOPHILS 0.6 thou/uL (0.0-0.7); ABSOLUTE LYMPHOCYTES 1.9 thou/uL (0.8-5.3); ABSOLUTE MONOCYTES 0.6 thou/uL (0.0-1.2); ABSOLUTE NEUTROPHILS 3.4 thou/uL (1.6-8.1); BASOPHILS 0.9 %; EOSINOPHILS 9.4 %; HEMATOCRIT 37.1 % (37.0-47.0); HEMOGLOBIN 12.6 gm/dL (12.0-15.0); LYMPHOCYTES 29.3 %; MCH 32.8 pg (26.0-34.0); MCHC 34.1 g/dL (28.0-37.0); MCV 96.2 fL (80.0-100.0); MONOCYTES 8.5 %; MPV 7.8 fl. (7.2-11.1); NUCLEATED RBCS 0 /100WBC; PLATELET COUNT* 226 thou/uL (150-400); POLYS 51.9 %; RBC 3.86 mil/uL (4.20-5.00); RDW-CV 11.7 % (10.5-14.5); WBC 6.5 thou/uL (4.0-11.0)
[2021-03-10 05:34] LABS: CALCIUM 8.4 mg/dL (8.5-10.1); CREATININE 0.8 mg/dL (0.6-1.3); MAGNESIUM 2.1 mg/dL (1.8-2.4); POTASSIUM 3.8 mmol/L (3.5-5.1)
[2021-03-10 08:00] VITALS: BP 150/78
[2021-03-10 08:11] LABS: BE 14.1 mmol/L (-2 to +3); pH 7.505 (7.340-7.450)
[2021-03-10 08:15] LABS: PCO2 51.1 mmHg (35.0-45.0)
[2021-03-10 08:16] LABS: PO2 54.6 mmHg (75.0-100.0)
--- NOTE | 2021-03-10 12:35 | NUR ---
Pt to dc to ARU later today
[2021-03-10 12:54] VITALS: BP 110/60
[2021-03-10 16:24] VITALS: BP 116/51
[2021-03-10 19:02] VITALS: BP 116/51
--- NOTE | 2021-03-10 19:05 | NUR ---
RECEIVED REPORT. ASSUMED CARE OF PT AROUND 0730. AM ASSESSMENT AND VITALS COMPLETED CHARTED. MEDS PER EMAR. CLASSROOM TEACHER IN PLACE. CTA COMPLETED. PT ACCEPTED TO INPATIENT REHAB. DISCAHRGE COMPLETED AND IN CHART. PT TO TRANSFER UPSTAIRS TO REHAB ON DANCE CHOREOGRAPHER. ARRIAZA TO STAY IN PLACE. DC WOUND PICS TAKEN AND DRESSINGS CHANGED. REPOT GIVEN TO NOC RN. FALL PRECAUTIONS IN PLACE. CALL LIGHT WITHIN REACH. HOURLY ROUNDING PERFORMED.
--- NOTE | 2021-03-17 21:48 | CON ---
[address] [address] CONSULTATION Name: MACHELLE ESPINOZA Room: [address] IN M.R.#: [id number] Admission: 03/04/21 Attend Phys: Rosalina Millan MD Discharge: 03/10/21 Date of : 45 Report #: [id number] THIS REPORT FOR: cc: Mar Campoverde Christina L DO Pervez, Adeel MD ~ DOC #: [id number] Jaguar Rios MD DATE OF CONSULTATION: 03/09/2021 REQUESTING PHYSICIAN: Cricket Martinez MD INDICATION FOR CONSULTATION: Lung nodule. HISTORY OF PRESENT ILLNESS: This is a 75-year-old female, past medical history is as mentioned below. She does have a pacemaker in place. Also, had an extensive history of smoking in the past. The patient states that she has a history of bronchial asthma and uses inhalers at home, what she is describing is asthma may in fact be ____. The patient is reported to have had a recent cognitive decline and this time, she is admitted initially on 03/04, presentation was with altered mental status. The patient was noted to be dehydrated and was having rhabdomyolysis at the time of presentation. Creatinine, however, was only mildly elevated to 1.3. Note that her baseline creatinine is 1.0. The patient did have various pain complaints. In addition to complaining of weakness, she complained of neck pain as well as bilateral elbow and left hip pain. The patient subsequently had imaging of her neck performed, which does show a nodule in the left upper lobe of lung. A subsequent CT of the chest as well as abdomen and pelvis have also been performed. There are no additional findings suspicious of malignancy. There is no mention of pulmonary emboli on the CT report, which is performed with IV dye; however, it is not a PE protocol. The patient does have pulmonary hypertension on her echocardiogram as well with a pulmonary artery systolic of 55. This is a change compared with her baseline of 31. Since admission, the patient has been fluid resuscitated. Currently, the patient has a normal creatinine of 0.7. Her CPK also normalized. Her bicarb has remained elevated to 38. The patient currently is on 2 liters nasal cannula and is oxygenating in the mid 90s. She is, however, reported to be hypoxemic on room air earlier. The patient at this time complains of only mild shortness of breath at rest. She has an occasional cough, but not much sputum. No chest pain at this time. Does not have upper respiratory complaints. No swelling of lower [place] [address] CONSULTATION Name: DEJUAN ESPINOZARHONDA Charles Room: [address] IN M.R.#: [id number] Admission: 03/04/21 Attend Phys: Rosalina Millan MD Discharge: 03/10/21 Date of : 45 Report #: [id number] REVIEW OF SYSTEMS: The patient provides a limited review of systems. However, the patient's review of systems for 12 points is negative except as mentioned above. PAST MEDICAL HISTORY: Bronchial asthma. According to the patient, it is more likely that she has COPD, status post pacemaker placement; previous left ventricular ejection fraction is normal, which is the case now as well. Previously, pulmonary artery systolic in the 30s, now 55. Tonsillectomy, appendectomy, cholecystectomy, tubal ligation, panic attacks and anxiety, irritable bowel syndrome, osteoarthritis, fibromyalgia, osteoporosis, cervical spinal stenosis, thoracic spine foramen narrowing, recurrent UTIs, stroke. CURRENT MEDICATIONS: List in [facility] reviewed. HOME MEDICATIONS: List in [facility] reviewed. SOCIAL HISTORY: The patient is reported to have an extensive history of smoking. She smoked for several decades. She is telling me now that she discontinued smoking 10 years ago. However, according to the records, she was still smoking in 2018. No known history of heavy alcohol use or illegal drug use. ALLERGIES: BACITRACIN, CODEINE, NITROFURANTOIN, OXYTETRACYCLINE ARE MENTIONED ALLERGIES. FAMILY HISTORY: No pertinent family history known at this time. PHYSICAL EXAMINATION: GENERAL: Alert, awake and oriented, however, providing a limited history. VITAL SIGNS: She has a pulse of 100 and a blood pressure of 109/64, was saturating 96% on 2 liters nasal cannula, respiratory rate 16, temperature 37.1. HEENT: Head is normocephalic and atraumatic. Pupils are equal and reactive. There is no throat erythema. NECK: Does not show raised JVP, asymmetry, mass or lymph nodes. CHEST: Symmetrical expansion on inspection and palpation. On auscultation, breath sounds are bilaterally equal, but decreased. There are no added sounds. HEART: Regular. There is no murmur. ABDOMEN: Soft and nontender. EXTREMITIES: Lower extremities: No edema, no calf tenderness. SKIN: Dry and intact. NEUROLOGIC: Moves all extremities bilaterally equally and spontaneously with [place] [address] CONSULTATION Name: MACHELLE ESPINOZA Room: [address] IN M.R.#: [id number] Admission: 03/04/21 Attend Phys: Rosalina Millan MD Discharge: 03/10/21 Date of : 45 Report #: [id number] IMAGING DATA: The patient has had multiple radiological imaging studies performed. I reviewed all of the reports. I reviewed the CT chest films as well as the chest x-ray films myself as well. LABORATORY DATA: The patient's lab work is in [facility] and this is also reviewed. ASSESSMENT/PLAN: 1. Lung nodule. There is a spiculated 10 mm lung nodule, which is noted on the CT of the chest in the left upper lobe. This could potentially be approached by a CT-guided lung biopsy; however, this will be a high-risk procedure and will likely result in pneumothorax. It does appear to me at first glance that the patient is likely to have significant chronic obstructive pulmonary disease. Therefore, I agree with the current plan of obtaining a PET scan and then deciding regarding further course of action. I can see the patient in the office with the PET scan results. 2. Chronic obstructive pulmonary disease. It appears to me that the patient has significant previously undiagnosed chronic obstructive pulmonary disease. She is currently requiring 2 liters of oxygen to maintain O2 saturation in the mid 90s. She was hypoxemic on room air earlier. I did order budesonide and Brovana. I did not, however, start systemic steroids at this time. In case the patient continues to require oxygen, I may consider a prednisone taper. There is elevation in bicarb at 38. In the long run as well to formulate a plan regarding her lung nodule as well, it will be useful to establish her pCO2. This is the reason that I am ordering an arterial blood gas. I will also down the line, plan to obtain pulmonary function test. 3. Pulmonary hypertension. Note, there is a pulmonary artery systolic elevated to 55. This is a significant rise compared with her previous echocardiogram. The CT chest was performed with IV dye. It is, however, not a pulmonary embolism protocol. There is not a mention of pulmonary emboli on the CT report. I will go ahead and obtain venous Dopplers. We will also obtain a D-dimer tomorrow morning. In case the D-dimer is elevated, then I will review with the radiologist tomorrow regarding whether the CT performed already is sufficient to rule out pulmonary emboli or whether additional imaging should be sought. 4. Rhabdomyolysis/mild acute renal insufficiency. The patient has already been adequately fluid resuscitated and at this time has normal renal function as well as CPK. 5. Benzodiazepine use. Note that the patient is on a significant amount of diazepam jail, some reduction in dose may be of benefit from a respiratory point of view, but I understand that this may be difficult as the patient is taking for a long period of time. I would defer to the primary service. [place] [address] CONSULTATION Name: MACHELLE ESPINOZA Room: [address] IN M.R.#: [id number] Admission: 03/04/21 Attend Phys: Rosalina Millan MD Discharge: 03/10/21 Date of : 45 Report #: [id number] MD ALESIA Marie <ELECTRONICALLY SIGNED> By: Jaguar Rios MD 03/17/21 2148 190 Asarina Rios MD /nt
== END 2021-03-10 21:33 | DRG 100 ==
LOC: M.ERS 12:33 → M.2W 14:53 → M.TBA-ER 14:53 → M.2W 18:00
PROVIDERS: Emergency Medicine Emergency Medical Services; Family Medicine; Internal Medicine; Internal Medicine Critical Care Medicine; Psychiatry & Neurology Neurology; ADMIT Internal Medicine; ATTEND Internal Medicine
DX: R56.9 Unspecified convulsions (principal); G93.41 Metabolic encephalopathy; E43 Unspecified severe protein-calorie malnutrition; M62.82 Rhabdomyolysis; Z68.1 Body mass index [BMI] 19.9 or less, adult; D72.829 Elevated white blood cell count, unspecified; F41.9 Anxiety disorder, unspecified; F43.10 Post-traumatic stress disorder, unspecified; Z20.822 Contact with and (suspected) exposure to COVID-19; M19.90 Unspecified osteoarthritis, unspecified site; M81.0 Age-related osteoporosis without current pathological fracture; J45.909 Unspecified asthma, uncomplicated; R91.1 Solitary pulmonary nodule; I27.20 Pulmonary hypertension, unspecified; F15.90 Other stimulant use, unspecified, uncomplicated; R91.8 Other nonspecific abnormal finding of lung field; F32.9 Major depressive disorder, single episode, unspecified; Z60.2 Problems related to living alone; J43.9 Emphysema, unspecified; G89.29 Other chronic pain; F03.90 Unspecified dementia, unspecified severity, without behavioral disturbance, psychotic disturbance, mood disturbance, and anxiety; Z90.49 Acquired absence of other specified parts of digestive tract; Z86.73 Personal history of transient ischemic attack (TIA), and cerebral infarction without residual deficits; Z88.6 Allergy status to analgesic agent; Z88.1 Allergy status to other antibiotic agents; Z88.8 Allergy status to other drugs, medicaments and biological substances; Z95.0 Presence of cardiac pacemaker

== ENCOUNTER 2021-03-10 18:11 | Inpatient (IN) | payer MEDICARE ==
[~2021-03-10] VITALS: Ht 152.4 cm; Wt 45.8 kg
[~2021-03-10 18:11] MED LIST changes: +ALLER-CHLOR4 MG PO; +BUSPAR30 MG PO; +CALCIUM500 MG PO; +CHILDREN'S ZYRT10 M1 PO; +CLOBETASOL PROP15 GM TOP; +DIAZEPAM 5 MG5 M1 PO; +FISH OIL 1,0001 EAC9 PO; +KEFLEX250 MG/5 M PO; +NORVASC5 MG PO; +PROAIR HFA8.5 GM INH; +TRIAMCINOLONE A15 G1 TOP
[2021-03-10 21:22] VITALS: BP 138/68
--- NOTE | 2021-03-11 00:37 | NUR ---
PT DISCHARGED AND TAKEN TO REHAB RM 333. BELONGINGS WITH PT. HS MEDICATIONS GIVEN
--- NOTE | 2021-03-11 05:09 | NUR ---
PT ARRIVED FROM TELEMETRY VIA WHEELCHAIR. SETTLED INTO BED, ADMISSION DATABASES COMPLETED. ALERT AND ORIENTED X4, COOPERATIVE WITH CARES. PT HAS ISSUES SWALLOWING AND TAKES ANTI ANXIETY MEDS. PT FELL AT HOME AND HAS WOUNDS ON SACRUM AND BACK, DRESSINGS C/D/I, PICTURES IN CHART. CHRONIC HIP PAIN. HAS PACEMAKER. ARRIAZA TO DD DRAINAGE, DRAINING CLEAR YELLOW URINE. PT EXACTING WITH CARES. CALL LLIGHT IN REACH, BED ALARM ON FOR SAFETY. HOURLY ROUNDING IN PROGRESS, WILL CONTINUE TO MONITOR.
[2021-03-11 05:22] LABS: HEMATOCRIT 36.9 % (37.0-47.0); HEMOGLOBIN 12.5 gm/dL (12.0-15.0); MCH 32.7 pg (26.0-34.0); MCHC 33.9 g/dL (28.0-37.0); MCV 96.5 fL (80.0-100.0); MPV 7.7 fl. (7.2-11.1); RBC 3.82 mil/uL (4.20-5.00); RDW-CV 12.1 % (10.5-14.5); WBC 7.5 thou/uL (4.0-11.0)
[2021-03-11 05:28] LABS: CALCIUM 8.6 mg/dL (8.5-10.1); CREATININE 0.8 mg/dL (0.6-1.3); POTASSIUM 4.3 mmol/L (3.5-5.1)
[2021-03-11 08:00] VITALS: BP 127/65
--- NOTE | 2021-03-11 10:45 | NUR ---
Nutrition: Pt transfered up to rehab. RD saw pt on other unit previously. Today, pt stated she is eating fine. She said she doesn't eat meat anymore d/t choking episode recently. I gave her a menu and explained alternative ordering so she can get good proteins without meats. Chopped diet. She said her usual wt is 100#. COPD, rhabdo. Ulcer on sacrum. She likes Ensure Enlive - RD will reorder. Albumin 2.6, prealb 16.7. Nutrition status improved from last assessment. Consider mild risk. Will follow weekly.
--- NOTE | 2021-03-11 17:30 | NUR ---
PATIENT COMPLETED THERAPIES THIS SHIFT ORDERED. UP WITH ASSISTANCE, GAIT BELT AND WALKER. PATIENT GIVEN PRN TYLENOL FOR BUTTOCKS PAIN. DRESSING TO COCCYX IN PLACE, PATIENT REFUSING TO TURN EDUCATION GIVEN. WAFFLE CUSHION IN PLACE TO ABDIAS/WHEELCHAIR. SMALL BM NOTED THIS SHIFT, ARRIAZA IN PLACE. PATIENT REFUSING TO WEAR 02 THIS AM, 02 SAT 90% ON RA AND EDUCATION WAS GIVEN. PATIENT DID PUT 02 2L NC ON THIS AFTERNOON.
[2021-03-11 20:30] VITALS: BP 129/61
--- NOTE | 2021-03-12 04:18 | NUR ---
PT A&O X 4. ON 1.5L BY NV. MEDS GIVEN ORDERED. PT TAKES PILLS ONE AT A TIME. TYLENOL GIVEN X1 FOR PAIN. ARRIAZA IN PLACE. BED ALARM ON FOR SAFETY. CALL LIGHT WITHIN REACH. WILL CONTINUE TO MONITOR.
[2021-03-12 07:48] VITALS: BP 112/61
--- NOTE | 2021-03-12 16:40 | NUR ---
PT WORKED WITH THERAPIES. UP WITH WALKER AND STB ASSIST. O2 1.5L NC. WOUND DRESSING C/D/I. ARRIAZA TO DD. CALL LIGHT IN REACH. FALL PRECAUTIONS IN PLACE.
--- NOTE | 2021-03-12 17:04 | NUR ---
INITIAL ASSESSMENT: PATIENT ADMITTED TO THE [facility] ON 03/10/21 WITH A DIAGNOSIS OF RHABDOMYOLYSIS. PRIOR TO ADMIT PT ACTIVE, AND INDPENDENT WITH ADLS. PT RESIDED AT HOME ALONE. PT USED A CANE FOR MOBILITY. PT HAS 0 PAST HH OR SNF HX. CM ORIENTED THE PT TO THE [facility] AND PROCESSES, RESIDENTS RIGHTS INFO, TEAM CONFRENCE, AND TO THE ROLE OF CM. CM WILL REMAIN AVAILABLE TO ASSIST AND FOLLOW NEEDED.
[2021-03-12 20:15] VITALS: BP 141/61
--- NOTE | 2021-03-13 00:11 | NUR ---
ASSUMED CARE AT 1920. PATIENT RESTING IN BED. TAKES PILLS WHOLE ONE AT A TIME WITH WATER. ARRIAZA DRAINING BARRON URINE. DRESING C/D/I TO BOTTOM. O2 1.5 L/NC. MEDICATED FOR PAIN, SEE MAR. RELUCTANT TO TURN, EDUCATION GIVEN. CALL LITE IN REACH. BED ALARM ON. HOURLY ROUNDS CONTINUE.
--- NOTE | 2021-03-13 05:56 | NUR ---
APPEARED SLEEPING MOST OF SHIFT. ARRIAZA DRAINING BARRON URINE. DID ALLOW SOME TURNS THROUGH NIGHT. NO FURTHER C/O PAIN. HOURLY ROUNDS CONTINUE. BED ALARM ON. CALL LITE IN REACH.,
[2021-03-13 08:00] VITALS: BP 107/50
[2021-03-13 20:00] VITALS: BP 166/75
--- NOTE | 2021-03-14 04:58 | NUR ---
ASSUMED PT CARE AT 1930. PT RESTING IN BED AT SHIFT CHANGE. ALERT AND ORIENTED X4, POLITE AND COOPERATIVE WITH CARES. TAKES PILLS ONE AT A TIME WITH WATER. PT UP TO BATHROOM X2 AT BEGINNING OF SHIFT FOR LARGE AMOUNTS OF SOFT STOOL. TRANSFERS WITH ASSIST OF ONE, GAIT BELT AND WALKER. ARRIAZA TO DD, DRAINING CLEAR YELLOW URINE. DENIES PAIN. DRESSING TO COCCYX C/D/I. ON 2L 02 PER NC. CALL LIGHT IN REACH, BED ALARM ON FOR SAFETY. HOURLY ROUNDING IN PROGRESS, WILL CONTINUE TO MONITOR.
[2021-03-14 07:51] VITALS: BP 132/55
[2021-03-14 19:32] VITALS: BP 141/63
--- NOTE | 2021-03-15 05:09 | NUR ---
ASSUMED PT CARE AT 1930. PT ALERT AND ORIENTED X4, POLITE AND COOPERATIVE WITH CARES. TAKES PILLS ONE AT A TIME WITH WATER. PT C/O LEFT HIP PAIN, BACK PAIN AND SACRAL PAIN. DRESSING CHANGED TO SACRUM, PICTURES IN CHART. ARRIAZA TO DD, DRAINING CLEAR YELLOW URINE. ON 2L 02 PER NC. CALL LIGHT IN REACH, BED ALARM ON FOR SAFETY. HOURLY ROUNDING IN PROGRESS, WILL CONTINUE TO MONITOR.
[2021-03-15 07:30] VITALS: BP 162/69
--- NOTE | 2021-03-15 09:49 | NUR ---
WOUND NURSE: PATIENT SEEN FOR ASSESSMENT OF HEALLED BULLA AT REQUEST OF PATIENT'S NURSE, DANIEL. SACRUM WITH INTACT PINK SCAR TISSUE. NO DRESSING REQUIRED.
[2021-03-15] MEDS ORDERED: LEVOTHYROXINE50 MCG PO (12:18)
--- NOTE | 2021-03-15 18:18 | NUR ---
PATIENT COMPLETED THERAPIES THIS SHIFT ORDERED. UP WITH ASSISTANCE; GAIT BELT AND WALKER. ARRIAZA DRAINING CLEAR YELLOW URINE, ARRIAZA BAG LEAKING THIS AFTERNOON; BAG CHANGED. BM NOTED THIS SHIFT. PRN TYLENOL GIVEN X 1 FOR HIP/BUTTOCKS PAIN. RUEL WOUND NURSE HERE THIS AM AND NOTED THAT COCCYX WOULD WAS HEALING; DRESSING DC'D. [address] FOR SOA WITH EXERTION.
[2021-03-15 19:00] VITALS: BP 146/64
--- NOTE | 2021-03-16 05:23 | NUR ---
ASSUMED PT CARE AT 1930. ALERT AND ORIENTED X4, POLITE AND COOPERATIVE WITH CARES. PRN TYLENOL X1 FOR HIP PAIN. ARRIAZA TO DD DRAINING CLEAR YELLOW URINE. NO STOOL THIS SHIFT. 2L 02 PER NC. PT SLEPT WELL OVERNIGHT. CALL LIGHT IN REACH, BED ALARM ON FOR SAFETY. HOURLY ROUNDING IN PROGRESS, WILL CONTINUE TO MONITOR.
[2021-03-16 08:00] VITALS: BP 123/58
--- NOTE | 2021-03-16 16:22 | NUR ---
CM SPOKE TO THE PT TO DISUCSS ANY QUESTIONS OR CONCERNS THAT SHE MAY HAVE FOR THIS WEEK TEAM CONFRENCE MEETING. PT HAS NO QUESTIONS OR CONCERNS AT THIS TIME. CM AND PHYSICIAN TO F/U WITH THE PT AFTER TOMORROWS MEETING.
--- NOTE | 2021-03-16 17:09 | NUR ---
PATIENT COMPLETED THERAPIES THIS SHIFT ORDERED. UP WITH ASSISTANCE, GAIT BELT AND WALKER. PATIENT HAD SHOWER TODAY. BM NOTED. ARSALAN WAS DC'D THIS EVENING AFTER THERAPY. HEATING PAD ORDERED FOR BACK, NOTIFIED THAT ALL HEATING PAD MACHINES IN USE. AM LABS AND TEAM MEETING TOMORROW.
[2021-03-16 19:00] VITALS: BP 147/60
--- NOTE | 2021-03-17 05:48 | NUR ---
PT SLEPT OFF AND ON OVERNIGHT. UP WITH GB WALKER AND SBA TO BATHROOM TO VOID AND MOD SOFT FORM BM. WEARING BRIEF FOR STRESS INCONTINENCE. O2 2L, KELLEY. TYLENOL AND SCHEDULED MELOXICAM GIVEN FOR CO HIP PAIN WITH GOOD RESULT. AOX4, ABLE TO USE CALL LITE AND MAKE NEEDS KNOWN. AM LABS. TAKES MEDS WHOLE ONE AT A TIME. PT TURNED AND REPOSITIONED SHE REQUESTS AND WOULD ALLOW OVERNIGHT FOR SKIN CARE AND COMFORT.
[2021-03-17 06:02] LABS: HEMATOCRIT 35.3 % (37.0-47.0); MCH 32.8 pg (26.0-34.0); MCHC 34.1 g/dL (28.0-37.0); MCV 96.3 fL (80.0-100.0); MPV 7.2 fl. (7.2-11.1); RBC 3.66 mil/uL (4.20-5.00); RDW-CV 11.7 % (10.5-14.5); WBC 9.9 thou/uL (4.0-11.0)
[2021-03-17 06:13] LABS: CALCIUM 8.4 mg/dL (8.5-10.1); CREATININE 0.8 mg/dL (0.6-1.3); POTASSIUM 4.5 mmol/L (3.5-5.1)
[2021-03-17 07:50] VITALS: BP 157/69
--- NOTE | 2021-03-17 17:31 | NUR ---
PATIENT COMPLETED THERAPIES THIS SHIFT ORDERED. UP WITH ASSISTANCE, GAIT BELT AND WALKER. [address] PRN TYLENOL GIVEN X 2 THIS SHIFT FOR HIP PAIN. INCONTINENT OF URINE, ALSO VOIDS PER TOILET. BM NOTED THIS SHIFT. PATIENT LAUNDRY BEING DONE. TEAM MEETING TODAY, RETEAM.
[2021-03-17 20:00] VITALS: BP 126/43
--- NOTE | 2021-03-18 00:44 | NUR ---
ASSUMED CARE AT 191. PATIENT IN RECLINER, ASSISTED TO BED. VOIDS PER TOILET. WEARS PULLUPS FOR STRESS INCONTINENCE. DOES OWN CARES. TAKES PILLS WHOLE WITH WATER A COUPLE AT A TIME. MEDICATED FOR PAIN, SEE NOV. HOURLY ROUNDS CONTINUE. BED ALARM ON. CALL LITE IN REACH.
--- NOTE | 2021-03-18 05:24 | NUR ---
SLEPT MUCH OF NIGHT BETWEEN VOIDS. UP WITH GAIT BELT, WALKER. VOIDS PER TOILET. VERY, VERY SLOW AND NEEDS EXTRA TIME AND CUEING/ENCOURAGEMENT. DOES OWN CARES. INCONTINENT INTO BRIEF AT TIMES, THESE CHANGED, SKIN CARE DONE. PATIENT STATED THAT SHE WISHED SHE COULD HAVE THE CATHETER BACK IN BECAUSE FREQUENT VOIDING WAS TIRING HER OUT. SHE STATES AT HOME SHE SOMETIMES JUST VOIDS INTO HER "DIAPER" RATHER THAN GET UP EACH TIME SHE FEELS LIKE SHE SHOULD VOID. ENCOURAGEMENT GIVEN TO CONTINUE TO VOID PER TOILET WHEN POSSIBLE. NO C/O PAIN. HOURLY ROUNDS CONTINUE. BED ALARM ON. CALL LITE IN REACH.
[2021-03-18 08:00] VITALS: BP 156/67
--- NOTE | 2021-03-18 17:50 | NUR ---
RECEIVED REPORT AROUND 0715. ASSUMED CARE. VS AND ASSESSMENT CHARTED. MEDS GIVEN PER NOV. HOURLY ROUNDING PERFORMED. WORKED WITH THERAPIES THIS SHIFT. PT IN CHAIR NOW. PAIN THROUGHOUT SHIFT. CALL LIGHT WITH IN REACH. WILL CONTINUE TO MONITOR.
[2021-03-18 19:50] VITALS: BP 128/54
--- NOTE | 2021-03-19 04:23 | NUR ---
PT A&O X 4. VSS ON 2L. MED GIVEN ORDERED. NO C/O PAIN. UP WITH ASSIST TO THE BR. INCONTINENT AT TIMES. PT SLEPT MOST OF THE NIGHT. BED ALARM ON. CALL LIGHT WITHIN REACH. WILL CONTINUE TO MONITOR.
[2021-03-19 07:52] VITALS: BP 138/68
[2021-03-19 08:45] VITALS: BP 138/68
--- NOTE | 2021-03-19 14:24 | NUR ---
I have reviewed the documentation by ADARSH LIANG from 03/15/21 to 03/19/21 and I concur with it. OSMAR OMER
--- NOTE | 2021-03-19 16:19 | NUR ---
TEAM CONFRENCE MEETING HELD THIS WEEK. PLAN TO RE-TEAM AND HAVE THE PT REMAIN ON THE UNIT FOR ANOTHER WEEK TO CONTINUE THERAPIES. PT AND HER DTR IN AGREEMENT WITH THE PLAN. CM WILL REMAIN AVAILABLE TO ASSIST AND FOLLOW NEEDED.
--- NOTE | 2021-03-19 17:28 | NUR ---
ALERT AND ORIENTED X4. UP WITH STAND BY ASSIST, GAIT BELT, WALKER AND O2 TUBING TO BATHROOM. ON SCHEDULED PAIN MEDICATION TO HELP WITH PAIN. TAKES SMALL PILLS WITHOUT DIFFICULTY BUT REFUSED LARGE PILLS. VOIDING FREQUENTLY. FREQUENTLY INCONTINENT OF URINE. USES CALL LIGHT FOR ASSIST. REMAINS ON O2 AT 2/NC TO KEEP O2 SAT IN 90'S. FALL PRECAUTIONS IN PLACE BED ALARM AND CHAIR ALARM USED.
[2021-03-19 18:09] LABS: URINE BILIRUBIN NEGATIVE (Negative); URINE BLOOD NEGATIVE (Negative); URINE CLARITY CLEAR; URINE COLOR YELLOW; URINE GLUCOSE-RANDOM NEGATIVE (Negative); URINE KETONES NEGATIVE (Negative); URINE LEUKOCYTES-REFLEX TRACE (Negative); URINE NITRITE-REFLEX NEGATIVE (Negative); URINE PROTEIN NEGATIVE (Negative); URINE UROBILINOGEN 0.2 E.U./dl (0.2-1.0)
[2021-03-19 18:39] LABS: SQUAMOUS 0-3 Few /LPF (0-3); URINE RBC 0-2 Rare /HPF (0-2)
[2021-03-19 18:40] LABS: BACTERIA-REFLEX 1-9 Few /HPF (None Seen); CASTS None Seen /LPF (None Seen); CRYSTALS None Seen /LPF (None Seen); YEAST-REFLEX Present (None Seen)
[2021-03-19 20:22] VITALS: BP 107/56
--- NOTE | 2021-03-19 23:39 | NUR ---
ASSUMED CARE AT 1915. PATIENT RESTING IN CHAIR. ASSISTED TO BED. REFUSED TO VOID, STATING SHE DIDN'T FEEL THE NEED. CALLED OUT SHORTLY AFTER STATING THAT SHE WAS INCONTINENT OF URINE. BRIEF CHANGED. PATIENT ENCOURAGED TO GET OOB TO VOID PER TOILET, THAT IS WHAT SHE WILL BE DOING AT HOME, AND TO ALLOW COMPLETE EMPTYING OF BLADDER. PATIENT REFUSED TO GET OOB TO VOID DESPITE EDUCATION. GRILL COOK HARISH WITNESSED THIS. BRIEF REMOVED TO ALLOW AIR TO SKIN, SKIN CARE DONE, MOISTURE BARRIER APPLIED. MOISTURE BARRIER ALSO APPLIED TO HEALED COCCYX AREA. TAKES PILLS WITH WATER. NEW MEDICINE FLOMAX STARTED TONIGHT, EDUCATION GIVEN. O2 2L/NC. CALL LITE IN REACH. BED ALARM ON. HOURLY ROUNDS CONTINUE.
--- NOTE | 2021-03-20 06:05 | NUR ---
SLEPT MOST OF THE NIGHT. DID GET UP ONCE TO ATTEMPT BM AND VOID. INSTRUCTED AGAIN TO CALL AND GET UP IF SHE NEEDS TO VOID. HAS REQUESTED TO GET UP TO VOID ONCE MORE. O2 2L/NC CONTINUES. C/O HIP PAIN, RELIEVED WITH ICE PACK INSIDE OF PILLOWCASE. ON SCHEDULED PAIN MEDS. HOURLY ROUNDS CONTINUE. BED ALARM ON. CALL LITE IN REACH.
[2021-03-20 07:39] VITALS: BP 151/76
--- NOTE | 2021-03-20 18:03 | NUR ---
PT UP WITH GAIT BELT, WALKER, AND ASSIST X1. ICE PACK AND SCHEDULED TIZANADINE GIVEN FOR PAIN. PT REQUESTING SPIKE GONZALEZ. STATES THAT SHE HAS ONLY BEEN SLEEPING 4 HOURS PER NIGHT. FREQUENT URINATION. INCONT MOST TIMES. O2 2L NC. CALL LIGHT IN REACH. FALL PRECAUTIONS IN PLACE.
[2021-03-20 19:00] VITALS: BP 146/53
[2021-03-21 07:23] VITALS: BP 128/60
--- NOTE | 2021-03-21 18:10 | NUR ---
PT UP WITH GAIT BELT, WALKER, AND ASSIST X1. UNSTEADY AT TIMES. PT INCONT OF URINE AND URINATES FREQUENTLY. O2 2L NC. SOA WITH EXERTION. DAUGHTER VISITED. CALL LIGHT IN REACH. FALL PRECAUTIONS IN PLACE.
[2021-03-21 20:00] VITALS: BP 137/69
--- NOTE | 2021-03-22 05:08 | NUR ---
ASSUMED CARES AT 1920. ALERT AND ORIENTED. ANXIOUS AT TIMES. MIN ASSIST WITH GAIT BELT AND WALKER. UP TO BATHROOM. CAN BE INCONTINENT AT TIMES. O2 2L NC. REFUSED TO BE TURNED ONTO SIDES. SLEPT SOME AFTER AMBIEN GIVEN. CALL LIGHT IN REACH AND BED ALARM ON.
[2021-03-22 09:00] VITALS: BP 143/76
--- NOTE | 2021-03-22 17:13 | NUR ---
ALERT AND ORIENTED X4. UP WITH 1 ASSIST, GAIT BELT AND WALKER. ON SCHEDULED PAIN MEDICATION TO HELP WITH PAIN. TAKES PILLS WITHOUT DIFFICULTY 1 AT A TIMES. REMAINS ON O2 AT 2L/NC AT ALL TIMES. USES CALL LIGHT FOR ASSIST. FALL PRECAUTION IN PLACE BED ALARM AND CHAIR ALARM USED.
[2021-03-22 19:00] VITALS: BP 129/61
--- NOTE | 2021-03-23 05:23 | NUR ---
ASSUMED CARE AT 1920. ALERT AND ORIENTED. O2 2L NC. MOD ASSIST WITH GAIT BELT AND WALKER. UP TO BATHROOM. URINARY INCONTINENCE AT TIMES. SLEPT WELL AFTER AMBIEN GIVEN. CALL LIGHT IN REACH AND BED ALARM ON.
[2021-03-23 07:24] VITALS: BP 141/68
--- NOTE | 2021-03-23 15:12 | NUR ---
Pt did get up with gait belt and walker , did not want to work with therapies today wanted to lay in bed and rest, pt did complete some therapies took alot of encourgement from staff. Vitals were stable. Call light in reach and fall precautions in place, will continue to encourge pt to work with therapy.
--- NOTE | 2021-03-23 16:02 | NUR ---
CM SPOKE TO THE PT TO DISCUSS ANY QUESITONS OR CONCERNS THAT SHE MAY HAVE FOR THIS WEEKS TEAM CONFRENCE MEETING. PT HAS NO QUESTIONS OR CONCERNS AT THIS TIME. PT'S DTR DID NOT ANSWER, BUT CM LEFT A VOICEMAIL FOR HER TO RETURN CALL. CM WILL REMAIN AVAILABLE TO ASSIST AND FOLLOW NEEDED.
[2021-03-23 19:00] VITALS: BP 131/61
[2021-03-24 04:42] LABS: HEMOGLOBIN 11.3 gm/dL (12.0-15.0); MCH 32.7 pg (26.0-34.0); MCHC 34.1 g/dL (28.0-37.0); MCV 95.9 fL (80.0-100.0); MPV 6.7 fl. (7.2-11.1); RBC 3.44 mil/uL (4.20-5.00); RDW-CV 11.7 % (10.5-14.5)
[2021-03-24 04:56] LABS: CALCIUM 8.5 mg/dL (8.5-10.1); CREATININE 0.7 mg/dL (0.6-1.3); POTASSIUM 4.4 mmol/L (3.5-5.1)
--- NOTE | 2021-03-24 05:09 | NUR ---
ASSUMED CARES AT 1920. ALERT AND ORIENTED. MOD ASSIST WITH GAIT BELT AND WALKER. UP TO BATHROOM. OVERNIGHT PT HAD INCREASED WEAKNESS WHILE AMBULATING DUE TO BACK PAIN. THIS IMPROVED AFTER TYLENOL GIVEN. URINARY INCONTINENCE AT TIMES. SLEPT OFF AND ON. CALL LIGHT IN REACH AND BED ALARM ON.
[2021-03-24 08:00] VITALS: BP 121/61
--- NOTE | 2021-03-24 18:13 | NUR ---
PATIENT COMPLETED THERAPIES THIS SHIFT ORDERED. UP WITH ASSISTANCE, GAIT BELT WALKER AND 02. PATIENT DOES BECOME SOMEWHAT UPSET WHEN PATIENT HAS TO COMPLETE OWN TASKS SUCH PUTTING ON OWN BRIEF. EXPLAINED TO PATIENT THAT SHE NEEDS TO COMPLETE TASKS HERSELF THAT SHE CAN DO SO SHE WILL BE READY FOR DISCHARGE, PATIENT VERBALIZES THAT "GOING HOME IS A DIFFERENT STORY." INCONTINENT OF URINE BUT ALSO VOIDING IN TOILET, SMALL BM NOTED. 02 2L NC REMAINS IN PLACE. PRN TYLENOL GIVEN X 1 FOR BACK/HIP PAIN. TEAM MEETING TODAY, RETEAM. LAUNDRY DONE THIS EVENING.
[2021-03-24 20:00] VITALS: BP 112/53
--- NOTE | 2021-03-25 05:19 | NUR ---
ASSUMED PT CARE AT 1930. PT ALERT AND ORIENTED X4, POLITE AND COOPERATIVE WITH CARES. UP WITH MOD ASSIST, GAITBELT, WALKER AND 02 TO BATHROOM TO VOID. PT CUED REPEATEDLY TO STAND UP STRAIGHT AND LOOK WHERE SHE IS GOING, NOT AT THE FLOOR. INCONTINENT OF URINE AT TIMES. PRN TYLENOL X1 FOR BACK PAIN. PT SLEPT MOST OF NOC. CALL LIGHT IN REACH, BED ALARM ON FOR SAFETY. HOURLY ROUNDING IN PROGRESS, WILL CONTINUE TO MONITOR.
[2021-03-25 07:54] VITALS: BP 100/54
[2021-03-25 20:00] VITALS: BP 111/57
--- NOTE | 2021-03-26 04:27 | NUR ---
ASSUMED PT CARE AT 1930. PT ALERT AND ORIENTED X4, POLITE AND COOPERATIVE WITH CARES. UP WITH MOD ASSIST, GAIT BELT, WALKER AND 02 TO BATHROOM TO VOID. ON 2L 02 PER NC. STOOL X1 THIS SHIFT. INCONTINENT OF URINE AT TIMES. PRN TYLENOL X1 FOR BACK/HIP PAIN. PT SLEPT MOST OF NOC. CALL LIGHT IN REACH, BED ALARM ON FOR SAFETY. HOURLY ROUNDING IN PROGRESS, WILL CONTINUE TO MONITOR.
[2021-03-26 07:49] VITALS: BP 124/63
--- NOTE | 2021-03-26 10:46 | NUR ---
I have reviewed the documentation by ADARSH LIANG from 03/22/21 to 03/26/21 and I concur with it. OSMAR OMER
--- NOTE | 2021-03-26 18:20 | NUR ---
PT WORKED WITH THERAPIES. UP WITH GAIT BELT, WALKER, AND ASSIST X1. UNSTEADY GAIT AT TIMES. PRN AND SCHEDULED PAIN MEDICATIONS GIVEN. INCONT OF URINE. CALL LIGHT IN REACH. FALL PRECAUTIONS IN PLACE.
[2021-03-26 20:00] VITALS: BP 144/66
--- NOTE | 2021-03-27 05:08 | NUR ---
ASSUMED PT CARE AT 1930. PT ALERT AND ORIENTED X4, POLITE AND COOPERATIVE WITH CARES. UP WITH MOD ASSIST, GAIT BELT, WALKER AND 02 TO BATHROOM TO VOID. ON 2L 02 PER NC. STOOL X2 THIS SHIFT. INCONTINENT OF URINE SEVERAL TIMES. PRN TYLENOL X2 FOR BACK/HIP PAIN. PT SLEPT MOST OF NOC. CALL LIGHT IN REACH, BED ALARM ON FOR SAFETY. HOURLY ROUNDING IN PROGRESS, WILL CONTINUE TO MONITOR.
[2021-03-27 07:40] VITALS: BP 144/73
--- NOTE | 2021-03-27 17:57 | NUR ---
PATIENT UP TO CHAIR THIS SHIFT. PATIENT MOVING VERY SLOW WHEN AMBULATING. UP WITH ASSISTANCE, GAIT BELT WALKER AND 02. PRN TYLENOL GIVEN FOR HIP/BACK/NECK PAIN, LIDODERM PATCH TO RIGHT HIP. BM NOTED X 3 THIS SHIFT, VOIDING PER TOILET BUT PATIENT MOSTLY INCONTINENT BEFORE REACHING TOILET.
[2021-03-27 20:00] VITALS: BP 127/71
[2021-03-28 07:30] VITALS: BP 130/68
[2021-03-28 15:14] LABS: HEMATOCRIT 32.4 % (37.0-47.0); MCH 33.2 pg (26.0-34.0); MCHC 34.1 g/dL (28.0-37.0); MCV 97.3 fL (80.0-100.0); RBC 3.33 mil/uL (4.20-5.00); RDW-CV 11.6 % (10.5-14.5); WBC 6.9 thou/uL (4.0-11.0)
[2021-03-28 15:22] LABS: ANION GAP < 0 mmol/L (7-16); BUN 35 mg/dL (7-18); CALCIUM 8.3 mg/dL (8.5-10.1); CHLORIDE 94 mmol/L (98-107); CO2 41 mmol/L (21-32); CREATININE 0.8 mg/dL (0.6-1.3); GLUCOSE 112 mg/dL (70-99); POTASSIUM 5.1 mmol/L (3.5-5.1); SODIUM 132 mmol/L (136-145)
--- NOTE | 2021-03-28 17:42 | NUR ---
PATIENT UP TO CHAIR THIS AM. [address], SOA WITH EXERTION. UP WITH ASSISTANCE, GAIT BELT AND WALKER. PATIENT ASSISTED TO BATHROOM THIS AFTERNOON AND STOPPED IN THE MIDDLE OF AMBULATION STATING "I AM SICK. MY LEGS ARE WEAK AND I CANT WALK." PATIENT WAS NEXT TO BED AND ASSISTED IN LYING DOWN. VITALS WERE STABLE AT THIS TIME. PATIENT DID C/O BACK PAIN AND WAS GIVEN SCHED TIZANIDINE AND PRN TYLENOL ORDERED. DR. MARSHALL WAS NOTIFIED. DR. DAILEY NOTIFIED AND ORDERS FOR LABS AND UA. DR. MARSHALL AWARE OF LAB RESULTS AND FURTHER LABS ORDERED FOR AM. UA SENT AT THIS TIME. PATIENT WAS THEN BEING TAKEN TO BATHROOM VIA WHEELCHAIR BUT WAS ABLE TO AMBULATE AGAIN TO TOILET THIS EVENING. GOOD APPETITE THIS SHIFT AND WATER INTAKE.
[2021-03-28 17:51] LABS: URINE BILIRUBIN NEGATIVE (Negative); URINE BLOOD NEGATIVE (Negative); URINE CLARITY CLEAR; URINE COLOR YELLOW; URINE GLUCOSE-RANDOM NEGATIVE (Negative); URINE KETONES NEGATIVE (Negative); URINE LEUKOCYTES-REFLEX NEGATIVE (Negative); URINE NITRITE-REFLEX NEGATIVE (Negative); URINE PROTEIN NEGATIVE (Negative); URINE UROBILINOGEN 0.2 E.U./dl (0.2-1.0)
[2021-03-28 21:00] VITALS: BP 138/57
--- NOTE | 2021-03-29 00:12 | NUR ---
ASSUMED CARE AT 1915. PATIENT RESTING IN BED ON BEDSIDE REPORT. UP TO TOILET TO VOID. TOOK 35 MINUTES JUST TO WALK TO TOILET, VOID AND GET BACK INTO BED DESPITE REPEATED COACHING, AND CUEING. STOPS WALKING AT TIMES TO TALK. REFUSED TO DOFF OWN WET DIAPER. ALSO REFUSED TO DON NEW ONE. NURSING ASSISTED. DOES DO OWN HYGIENE AFTER TOILETING. NEEDS ASSIST WITH GETTING LEGS BACK INTO BED. PATIENT KEPT ASKING "WILL YOU DEFEND ME TO THERAPIES TOMORROW?" "THEY WILL BE MAD AT HOW I AM DOING." WILL REFER TO OTHER STAFF MEMBERS USING DEROGATORY TERMS, THIS NURSE EDUCATED HER THAT THIS IS INAPPROPRIATE. TAKES PILLS ONE AT A TIME WITH WATER. CONCERNED ABOUT CHOKING, BUT NO CHOKING OBSERVED. DROPPED ONE MOBIC AT HS, UNABLE TO FIND IN THE SHEETS, THIS PILL REPLACED AND SHE TOOK IT WITHOUT INCIDENT. MEDICATED AT HS WITH APAP, SEE ORDERS. HOURLY ROUNDS CONTINUE. BED ALARM ON. CALL LITE IN REACH.
[2021-03-29 04:47] LABS: BE 12.6 mmol/L (-2 to +3); PCO2 VENOUS 86.9 mmHg (41.0-51.0); PO2 VENOUS 36.2 mmHg (35.0-45.0)
--- NOTE | 2021-03-29 06:23 | NUR ---
SLEPT MUCH OF NIGHT BETWEEN VOIDS. UP WITH SBA, GAIT BELT, WALKER. TAKES EXTREMEMLY LONG TIME WITH MANY STOPS TO AMBULATE TO TOILET AND BACK. EACH VOIDING TAKES UP APPROXIMATELLY 35-40 MINUTES EACH TIME INCLUDING TRIPS TO AND FROM TOILET. MEDICATED FOR PAIN, SEE MAR. SHE IS INCONTINENT AT TIMES AFTER THINKING SHE WAS DONE AND SHE STANDS, VOIDING MORE INTO BRIEF. SHE STATES THIS IS NOT A NEW PROBLEM, BUT THINKS THE FLOMAX IS HELPING. REFUSES TURNS, DESPITE EDUCATION. HOURLY ROUNDS CONTINUE. CALL LITE IN REACH.
--- NOTE | 2021-03-29 06:50 | NUR ---
DURING THIS LAST VOID, PATIENT WAS OBSERVED TO BE VOLUNTARILY TAKING OFF HER WET BRIEF WHILE SITTING ON THE TOILET WITHOUT COACHING.
[2021-03-29 08:00] VITALS: BP 126/65
--- NOTE | 2021-03-29 18:31 | NUR ---
ALERT AND ORIENTED X4. UP WITH STAND BY ASSIST GAIT BELT AND WALKER. ON SCHEDULED PAIN MEDICATION. REMAINS ON O2 AT 2L/NC. DR NOTIFIED OF ABG AND NEW ORDER FOR BIPAP ORDERED FOR AT NIGHT. VOIDING FREQUENTLY AND AT TIMES INCONTINENT. USES CALL LIGHT FOR ASSIST. FALL PRECAUTIONS IN PLACE. BED ALARM AND CHAIR ALARM USED.
[2021-03-29 19:00] VITALS: BP 130/62
[2021-03-30 05:57] LABS: BE 9.4 mmol/L (-2 to +3); PO2 97.9 mmHg (75.0-100.0); pH 7.421 (7.340-7.450)
[2021-03-30 05:59] LABS: PCO2 56.1 mmHg (35.0-45.0)
--- NOTE | 2021-03-30 06:50 | NUR ---
ASSUMED CARE AT 1920. ALERT AND ORIENTED. O2 1-2 L NC. COMPLIANT WITH BIPAP MOST OF THE NIGHT. MOD ASSIST WITH GAIT BELT AND WALKER. UP TO BATHROOM SEVERAL TIMES OVERNIGHT. AT 0559, RECEIVED CRITICAL ABG PCO2: 56.[address] BOOKER WAS INFORMED OF RESULTS. NO NEW ORDERS. PT SLEPT OFF AND ON. CALL LIGHT IN REACH AND BED ALARM ON.
--- NOTE | 2021-03-30 06:56 | NUR ---
ASSUMED CARE AT 1920. ALERT AND ORIENTED. PLEASANT. AT BEDSIDE OVERNIGHT. DESPITE AMBIEN AND MELATONIN GIVEN, PT DID NOT HARDLY SLEEP. EXPRESSED EXTREME CONCERN OF THIS AND DID NOT SLEEP WELL EITHER. PT WAS DROWSY BUT HIS LEGS WERE VERY RESTLESS HE WOULD LIFT THEM UP IN THE AIR CONSTANTLY AND REMOVE HIS COVERS. PT UNAWARE THAT HE WAS ACTIVELY DOING THIS. HE DID NOT HOWEVER TRY TO GET OUT OF BED. SLIGHT CONFUSION NOTED. PT WAS ASSISTED WITH URINAL USE. PAIN MEDS GIVEN FOR RIGHT HIP PAIN. PAGED DR BOOKER THIS AM AND INFORMED OF ABOVE. NEW SLEEP MED WAS ORDERED. CALL LIGHT IN REACH AND BED ALARM ON.
[2021-03-30 07:52] VITALS: BP 135/69
--- NOTE | 2021-03-30 16:11 | NUR ---
CM SPOKE TO THE PT AND HER DTR TO DISCUSS ANY QUESTIONS OR CONCERNS FOR THIS WEEKS TEAM CONFRENCE MEETING. PT AND DTR HAVE NO QUESTIONS OR CONCERNS AT THIS TIME. CM WILL F/U WITH PT AND HER DTR AFTER TOMORROWS MEETING.
--- NOTE | 2021-03-30 16:21 | NUR ---
patient up with gait belt and walker, patient did complete all therapies. No complaints of pain. Encourging patient to do more adls. Patient has call light in reach and fall precautions in place.
[2021-03-30 19:00] VITALS: BP 104/51
[2021-03-31 04:48] LABS: HEMATOCRIT 32.4 % (37.0-47.0); HEMOGLOBIN 11.1 gm/dL (12.0-15.0); MCH 33.2 pg (26.0-34.0); MCHC 34.1 g/dL (28.0-37.0); MCV 97.2 fL (80.0-100.0); MPV 6.7 fl. (7.2-11.1); RBC 3.33 mil/uL (4.20-5.00); RDW-CV 11.6 % (10.5-14.5); WBC 6.3 thou/uL (4.0-11.0)
[2021-03-31 04:52] LABS: BE 5.6 mmol/L (-2 to +3); PCO2 VENOUS 62.7 mmHg (41.0-51.0)
[2021-03-31 05:07] LABS: CALCIUM 8.5 mg/dL (8.5-10.1); CREATININE 0.9 mg/dL (0.6-1.3); POTASSIUM 4.4 mmol/L (3.5-5.1)
--- NOTE | 2021-03-31 05:14 | NUR ---
ASSUMED CARES AT 1920. ALERT AND ORIENTED. O2 2L NC. WORE BIPAP OVERNIGHT. MOD ASSIST WITH GAIT BELT AND WALKER. UP TO BATHROOM FEW TIMES. WANTS ASSIST WITH LEGS INTO BED. SLEPT OFF AND ON. CALL LIGHT IN REACH AND BED ALARM ON.
[2021-03-31 07:41] VITALS: BP 144/68
--- NOTE | 2021-03-31 16:10 | NUR ---
TEAM CONFRENCE MEETING HELD TODAY. PLAN FOR THE PT TO D/C HOME WITH 24/7 CARE OR TO SNF WHEN AVAILABLE. PT AND HER DTR INFORMED OF THIS PLAN. PT INFORMS THAT SHE NEEDS TIME TO DISCUSS THIS WITH HER DTR. CM PROVIDED PT WITH PRINTED RESOURCES AND WILL F/U WITH THE PT AND HER DTR TOMORROW. CM WILL REMAIN AVAILABLE TO ASSIST AND FOLLOW NEEDED.
--- NOTE | 2021-03-31 16:58 | NUR ---
PT UP WITH WALKER, GAIT BELT, AND STB ASSIST. O2 2LNC. BECOMES SHORT OF AIR WITH EXERTION. INCONT OF URINE. DR MARSHALL NOTIFIED OF PT'S DAUGHTER'S CONCERN OF HER LUNG MASS. CONSULT CALLED TO DR ABEL. DR ABEL WILL TELE MED [facility]. CALL LIGHT IN REACH. FALL PRECAUTIONS IN PLACE.
[2021-03-31 20:21] VITALS: BP 101/56
--- NOTE | 2021-04-01 04:52 | NUR ---
ASSUMED CARE AT 0. ALERT AND ORIENTED. O2 1L NC. ONLY WORE BIPAP UNTIL 99 BEFORE WANTING IT TAKEN OFF. MOD ASSIST WITH GAIT BELT AND WALKER. UP TO BATHROOM. URINARY INCONTINENCE AT TIMES. SLEPT OFF AND ON. CALL LIGHT IN REACH AND BED ALARM ON.
[2021-04-01 07:49] VITALS: BP 152/79
[2021-04-01 15:51] LABS: BE 8.2 mmol/L (-2 to +3)
[2021-04-01 15:55] LABS: PCO2 57.3 mmHg (35.0-45.0); PO2 179.8 mmHg (75.0-100.0)
--- NOTE | 2021-04-01 17:47 | NUR ---
PT UP WITH GAIT BELT, WALKER, AND ASSIST X1. PHYSICAL THERAPY CONCERNED WITH PT'S MENTAL STATUS. ORDERS RECEIVED FOR ABG AND TELE PSYCH CONSULT. PT REPORTED THAT SHE IS HAVING PROBLEMS AT HOME. REPORTS THAT SOMEONE IS STALKING HER. PT DAUGHTER, JODY HERE AND STATES THAT SHE HAS COMPLAINED OF THIS FOR A FEW WEEKS. DR MARSHALL AND DR DAILEY NOTIFIED OF ABG RESULTS. O2 DISCONTINUED PER DR MARSHALL. FREQUENTLY INCONT OF URINE. CALL LIGHT IN REACH. FALL PRECAUTIONS IN PLACE.
[2021-04-01 20:00] VITALS: BP 129/75
--- NOTE | 2021-04-02 04:59 | NUR ---
ASSUMED PT CARE AT 1930. PT ALERT AND ORIENTED X4, POLITE AND COOPERATIVE WITH CARES. PT UP MANY TIMES WITH MOD ASSIST, GAIT BELT AND WALKER TO VOID. INCONTIENT X1. STOOL X2 THIS SHIFT. PT SATS IN HIGH 80'S, PLACED ON 2L 02 PER NC. PT WORE BIPAP FROM MIDNIGHT TO 0400. SLEPT IN BETWEEN CARES. CALL LIGHT IN REACH, BED ALARM ON FOR SAFETY. HOURLY ROUNDING IN PROGRESS, WILL CONTINUE TO MONITOR.
[2021-04-02 07:40] VITALS: BP 123/64
[2021-04-02] MEDS ORDERED: ALBUTEROL INH (15:24)
[2021-04-02] MEDS ORDERED: TYLENOL PO (15:26)
--- NOTE | 2021-04-02 18:00 | NUR ---
PATIENT DISCHARGED THIS EVENING TO [facility]. REPORT CALLED TO SONG. [address] INCONTINENT OF URINE AT TIMES, BM NOTED. DAUGHTER NOTIFIED OF PATIENT TRANSFER TO FACILITY. PATIENT BELONGINGS TO BE BROUGHT OVER THIS EVENING FROM HOSPITAL
== END 2021-04-02 18:03 | DRG 70 ==
LOC: M.REH 18:11
PROVIDERS: Internal Medicine; ADMIT Physical Medicine & Rehabilitation; ATTEND Physical Medicine & Rehabilitation
PROC: 5A09357 Assistance with Respiratory Ventilation, Less than 24 Consecutive Hours, Continuous Positive Airway Pressure (ICD-10-PCS; principal; 2021-03-31)
PROC: 5A09357 Assistance with Respiratory Ventilation, Less than 24 Consecutive Hours, Continuous Positive Airway Pressure (ICD-10-PCS; 2021-04-01)
DX: G93.41 Metabolic encephalopathy (principal); E43 Unspecified severe protein-calorie malnutrition; N39.0 Urinary tract infection, site not specified; M62.82 Rhabdomyolysis; Z68.1 Body mass index [BMI] 19.9 or less, adult; R53.81 Other malaise; G93.40 Encephalopathy, unspecified; F41.9 Anxiety disorder, unspecified; F32.9 Major depressive disorder, single episode, unspecified; F43.10 Post-traumatic stress disorder, unspecified; M79.7 Fibromyalgia; M19.90 Unspecified osteoarthritis, unspecified site; M81.0 Age-related osteoporosis without current pathological fracture; G89.29 Other chronic pain; F03.90 Unspecified dementia, unspecified severity, without behavioral disturbance, psychotic disturbance, mood disturbance, and anxiety; Z86.73 Personal history of transient ischemic attack (TIA), and cerebral infarction without residual deficits; Z88.8 Allergy status to other drugs, medicaments and biological substances; Z88.5 Allergy status to narcotic agent; Z88.1 Allergy status to other antibiotic agents

== ENCOUNTER 2021-05-02 00:10 | Inpatient (IN) | payer MEDICARE ==
[~2021-05-02] VITALS: Ht 152.4 cm; Wt 51.0 kg
[~2021-05-02 00:10] MED LIST changes: +ALBUTEROL INH; +LEVOTHYROXINE50 MCG PO; +TYLENOL PO
[2021-05-02 00:38] VITALS: BP 164/69
[2021-05-02 00:44] LABS: ABSOLUTE EOSINOPHILS 0.1 thou/uL (0.0-0.7); ABSOLUTE MONOCYTES 0.7 thou/uL (0.0-1.2); ABSOLUTE NEUTROPHILS 6.9 thou/uL (1.6-8.1); BASOPHILS 0.3 %; EOSINOPHILS 1.3 %; HEMOGLOBIN 12.7 gm/dL (12.0-15.0); LYMPHOCYTES 11.8 %; MCH 31.3 pg (26.0-34.0); MCHC 32.6 g/dL (28.0-37.0); MCV 96.1 fL (80.0-100.0); MONOCYTES 7.9 %; MPV 7.2 fl. (7.2-11.1); NUCLEATED RBCS 0 /100WBC; PLATELET COUNT* 245 thou/uL (150-400); POLYS 78.7 %; RBC 4.06 mil/uL (4.20-5.00); RDW-CV 11.6 % (10.5-14.5); WBC 8.8 thou/uL (4.0-11.0)
[2021-05-02] MEDS ORDERED: AMBIEN5 MG PO (00:56)
[2021-05-02 00:57] LABS: CALCIUM 8.6 mg/dL (8.5-10.1); CREATININE 0.9 mg/dL (0.6-1.3); POTASSIUM 4.2 mmol/L (3.5-5.1)
[2021-05-02] MEDS ORDERED: COLACE100 MG PO (00:57)
[2021-05-02] MEDS ORDERED: LIDODERM1 EACH TRANSDERM (00:57)
[2021-05-02] MEDS ORDERED: FLOMAX0.4 MG PO (00:57)
[2021-05-02] MEDS ORDERED: VENTOLIN HFA 1818 GM INH (00:58)
[2021-05-02] MEDS ORDERED: MELATONIN5 MG SUBLING (00:58)
[2021-05-02 01:13] LABS: ALBUMIN 3.6 g/dL (3.4-5.0); TOTAL BILIRUBIN 0.3 mg/dL (<0.1-1.0)
[2021-05-02 07:16] LABS: URINE BILIRUBIN NEGATIVE (Negative); URINE BLOOD 3+ (Negative); URINE CLARITY CLEAR; URINE COLOR YELLOW; URINE GLUCOSE-RANDOM NEGATIVE (Negative); URINE KETONES 1+ (Negative); URINE LEUKOCYTES-REFLEX TRACE (Negative); URINE NITRITE-REFLEX POSITIVE (Negative); URINE PROTEIN 1+ (Negative); URINE SPECIFIC GRAVITY 1.015 (1.005-1.030); URINE UROBILINOGEN 0.2 E.U./dl (0.2-1.0)
[2021-05-02 07:37] LABS: SQUAMOUS 0-3 Few /LPF (0-3)
[2021-05-02 07:38] LABS: BACTERIA-REFLEX >30 Many /HPF (None Seen); CASTS None Seen /LPF (None Seen); CRYSTALS None Seen /LPF (None Seen); MUCUS None Seen strn/LPF (None Seen); URINE RBC >20 Many /HPF (0-2); URINE WBC-REFLEX 0-5 Rare /HPF (0-5)
--- NOTE | 2021-05-02 09:07 | EKG ---
[place] [address] ELECTROCARDIOGRAM REPORT Name: MACHELLE ESPINOZA Room: [place] [address] ADM IN .R.#: [id number] Admission: 05/02/21 Attend Phys: Rosalina Millan, Discharge: Date of : 45 Date of Service: 05/02/21 0027 Report #: [id number] THIS REPORT FOR: //name// [facility] ED Test Date: 2021-05-02 Test Time: 00:27:03 Pat Name: MACHELLE ESPINOZA Department: Room: [facility] Gender: F Nut Steamer: [place] : 1945 Requested By: Yuridia Carpenter Order Number: [id number] MD: Clarence Heart Measurements Intervals [place] Rate: 127 P: NC: QRS: 261 QRSD: 145 T: 80 QT: 410 QTc: 597 Interpretive Statements atrial sensed and ventricular paced rhythm Compared to ECG 03/04/2021 12:53:33 rate has increased Electronically Signed On 05-02-2021 9:07:47 CDT by Clarence Heart [email or web address] <ELECTRONICALLY SIGNED> By: Clarence Heart MD, [facility] 05/02/21 0907 0027 0027 Clarence Heart MD, [facility] /EPI
[2021-05-02 09:27] VITALS: BP 161/75
[2021-05-02 11:57] VITALS: BP 161/75
[2021-05-02 12:30] VITALS: BP 157/83
[2021-05-02 16:00] VITALS: BP 157/76
[2021-05-03 01:43] VITALS: BP 132/62
[2021-05-03 06:03] VITALS: BP 148/70
[2021-05-03 12:15] VITALS: BP 145/64
--- NOTE | 2021-05-03 15:46 | NUR ---
Pt out of the room in surgery when CM went to assess, CM left for Pt's dtr. Per chart review, Pt is from [facility]. Pt apparently "threw" herself out of the chair because she was not getting her medications in a timely mannor. Pt was originally from home. Independent. Cane for mobility. No hx. Pt was recently at [facility] on 03/12/21. Supportive family. CM will attempt to assess Pt tomorrow.
--- NOTE | 2021-05-03 15:58 | OP ---
[address] [address] OPERATIVE REPORT Name: MACHELLE ESPINOZA Room: [address] IN .R.#: [id number] Admission: 05/02/21 Attend Phys: Rosalina Millan MD Discharge: Date of : 45 Report #: [id number] THIS REPORT FOR: cc: Sanchez Ambrosio William F. DO Cornett, Alan D. DO ~ DATE OF SURGERY: 05/03/2021 PREOPERATIVE DIAGNOSIS: Closed displaced right femoral neck fracture. POSTOPERATIVE DIAGNOSIS: Closed displaced right femoral neck fracture. PROCEDURE: Right hip hemiarthroplasty via direct anterior approach. SURGEON: Deni Bee DO. CHIEF SERVICE OBSERVER: KATIE Meneses. SECOND SASH CLAMP OPERATOR: KATIE Ruth. ANESTHESIA: General. ANTIBIOTICS: 1 g of Ancef IV preoperatively. DRAINS: None. SPECIMENS: None. ESTIMATED BLOOD LOSS: 150 mL. COMPLICATIONS: None. ORTHOPEDIC IMPLANTS: Biomet bipolar hemiarthroplasty system, 44 mm outer diameter, 28 mm inner diameter acetabular cup, 28 mm outer diameter, +3 mm neck length modular head component, cobalt chromium and a size 12 high offset Taperloc complete stem. HISTORY: The patient is a 75-year-old female with a history of a fall onto her right hip. She was diagnosed with a displaced right femoral neck fracture. She presents today for right hip hemiarthroplasty. Risks, benefits, complications, indications, alternatives were discussed. She has voiced understanding and signed consent and elected to proceed. Risks include but not limited to fracture, infection, neurovascular injury, continued pain, loss of motion, need for subsequent revision surgery, leg length inequality, instability, dislocation of the right hip joint, DVT, PE, SC, stroke, [place] [address] OPERATIVE REPORT Name: MACHELLE ESPINOZA Room: [address] IN [facility]#: [id number] Admission: 05/02/21 Attend Phys: Rosalina Millan MD Discharge: Date of : 45 Report #: [id number] DESCRIPTION OF PROCEDURE: The patient was taken to the operative suite, placed in supine position, given benefit of general anesthetic, placed on a [place] table against a perineal post. Both feet were placed in traction boots. Right hip was sterilely prepped and draped in the usual fashion. Proper operative site was confirmed with standard timeout technique. Standard anterior approach was taken to the right hip, lateral circumflex vessels were identified, cauterized, and incised. The anterior capsule was exposed. She was treated with Aquamantys and then anterior capsulectomy was performed. Anterior capsulectomy was performed at this time and the femoral neck cut was made with an oscillating saw. Femoral neck and head were removed. Trial sizing of the acetabulum was performed and it was deemed that a 44 mm acetabular component was most appropriate. Attention was then turned to the proximal femur. Appropriate capsular releases were performed, long leg positioning of the external elevating hook and [place] table. I was able to achieve excellent proximal femoral exposure. Intramedullary canal was accessed with a rat tail rasp and then broaching was initiated up in sequential fashion to a size 12 broach which was left in place for trialing, trialing of a high offset +3 mm neck length construct provided excellent intraoperative stability. C-arm fluoroscopic images confirmed appropriate implant placement and sizing as well as leg length and offset. This hip was dislocated. Trials were removed. Thorough irrigation was performed. Final stem was then implanted in press-fit fashion. Final bipolar component was constructed on the back table and then impacted on the Huang taper with light mallet blows. The hip was reduced. Intraoperative stability checks were excellent. Final C-arm fluoroscopic images confirmed appropriate implant placement sizing as well as leg length and offset. A thorough irrigation was performed. Hemostasis was found to be appropriate. Tensor fascia was then closed with #1 Stratafix suture in a running fashion. Subcuticular closure was performed with 2-0 Vicryl in simple inverted interrupted fashion. The skin was closed with running 3-0 Stratafix, subcuticular suture with Dermabond on the skin. Sterile dressings were applied. The patient tolerated the procedure well. Sponge and needle counts were correct x 2. The patient was taken to recovery room in stable condition. Deni Little DO attest that I was present and scrubbed in for the entirety of the case excluding skin closure. <ELECTRONICALLY SIGNED> By: Judah Sebastian DO 05/03/21 1558 1053 [id number] Bee DO /vera
[2021-05-03 20:30] VITALS: BP 129/61
[2021-05-04] VITALS: BP 117/54
[2021-05-04 04:00] VITALS: BP 148/81; BP 97/39
[2021-05-04 07:58] VITALS: BP 140/83
[2021-05-04 12:07] VITALS: BP 129/58
[2021-05-04 12:41] LABS: ABSOLUTE EOSINOPHILS 0.2 thou/uL (0.0-0.7); ABSOLUTE LYMPHOCYTES 1.4 thou/uL (0.8-5.3); ABSOLUTE MONOCYTES 1.1 thou/uL (0.0-1.2); BASOPHILS 0.4 %; EOSINOPHILS 1.9 %; HEMATOCRIT 31.8 % (37.0-47.0); LYMPHOCYTES 14.1 %; MCH 31.3 pg (26.0-34.0); MCHC 32.7 g/dL (28.0-37.0); MCV 95.5 fL (80.0-100.0); MONOCYTES 11.6 %; MPV 7.1 fl. (7.2-11.1); NUCLEATED RBCS 0 /100WBC; PLATELET COUNT* 239 thou/uL (150-400); RBC 3.34 mil/uL (4.20-5.00); RDW-CV 11.5 % (10.5-14.5); WBC 9.6 thou/uL (4.0-11.0)
[2021-05-04 12:43] LABS: HEMOGLOBIN 10.4 gm/dL (12.0-15.0)
[2021-05-04 12:50] LABS: ALBUMIN 2.6 g/dL (3.4-5.0); ALKALINE PHOSPHATASE 56 U/L (46-116); ANION GAP < 0 mmol/L (7-16); BUN 20 mg/dL (7-18); CALCIUM 8.3 mg/dL (8.5-10.1); CHLORIDE 99 mmol/L (98-107); CO2 38 mmol/L (21-32); CREATININE 0.9 mg/dL (0.6-1.3); GLUCOSE 102 mg/dL (70-99); POTASSIUM 4.3 mmol/L (3.5-5.1); SGOT 16 U/L (15-37); SGPT 22 U/L (30-65); SODIUM 136 mmol/L (136-145); TOTAL BILIRUBIN 0.2 mg/dL (<0.1-1.0); TOTAL PROTEIN 5.8 g/dL (6.4-8.2)
--- NOTE | 2021-05-04 16:03 | NUR ---
Surgery yesterday. Therapies to see. SNF planned at [facility]. Anticipate dc tomorrow.
[2021-05-04 17:00] VITALS: BP 155/71
--- NOTE | 2021-05-04 18:52 | NUR ---
PATIENT A&O, CONFUSED AND FORGETFUL AT TIMES. PATIENT REFUSED PT TODAY, EVEN AFTER NURSE AND DR. HERNÁNDEZ ENCOURAGED HER. O2@3-4 VIA NASAL CANNULA AND PUREWICK IN PLACED. MEDICATIONS ADMINISTERED ORDERED. CALL LIGHT AND FREQUENTLY USED ITEMS WITHIN REACH.
[2021-05-04 20:37] VITALS: BP 147/61
[2021-05-05 02:18] VITALS: BP 137/58
[2021-05-05 04:55] LABS: CALCIUM 8.1 mg/dL (8.5-10.1); CREATININE 0.7 mg/dL (0.6-1.3); POTASSIUM 4.3 mmol/L (3.5-5.1)
[2021-05-05 05:06] LABS: ABSOLUTE BASOPHILS 0.1 thou/uL (0.0-0.2); ABSOLUTE EOSINOPHILS 0.4 thou/uL (0.0-0.7); ABSOLUTE LYMPHOCYTES 1.4 thou/uL (0.8-5.3); BASOPHILS 0.6 %; LYMPHOCYTES 16.4 %; MCH 31.6 pg (26.0-34.0); MCHC 33.4 g/dL (28.0-37.0); MCV 94.6 fL (80.0-100.0); MPV 7.7 fl. (7.2-11.1); NUCLEATED RBCS 0 /100WBC; PLATELET COUNT* 244 thou/uL (150-400); RBC 3.17 mil/uL (4.20-5.00); RDW-CV 11.6 % (10.5-14.5); WBC 8.8 thou/uL (4.0-11.0)
--- NOTE | 2021-05-05 05:29 | NUR ---
PT CONFUSED AT NIGHT, WORRIED ABOUT HER ANKLES BREAKING DOWN AND SO I PUT A PILLOW UNDER HER FEET. SHE RECEIVED ALL HER MEDS SCHEDULED. EILEENWICK IN PLACE, ALERT WITH CONFUSION AND FORGETFULNESS. SHE HAS SOME ANXIETY BUT NEEDS TO WORK WITH PT TODAY, SHE REFUSED YESTERDAY.
[2021-05-05 05:30] VITALS: BP 152/77
[2021-05-05 08:33] VITALS: BP 142/64
[2021-05-05 12:56] VITALS: BP 116/50
--- NOTE | 2021-05-05 15:03 | CON ---
[address] [address] CONSULTATION Name: MACHELLE ESPINOZA Room: [address] IN M.R.#: [id number] Admission: 05/02/21 Attend Phys: Rosalina Millan MD Discharge: Date of : 45 Report #: [id number] THIS REPORT FOR: cc: Sanchez Ambrosio,Clarence Rios MD [facility] ~ DATE OF CONSULTATION: 05/03/2021 CARDIOLOGY CONSULTATION HISTORY OF PRESENT ILLNESS: The patient is a 75-year-old white female who I was asked to see in the hospital today because of previous pacemaker insertion. The patient presented in 2017 to undergo an EGD. During the procedure, she had episodes of Mobitz type 2 AV block with heart rates in the 40s. She was seen by Dr. Jolly, who subsequently implanted a permanent pacemaker. She has done well since that time. She was admitted here in 03/2021 with confusion after she fell. She has a previous history of spinal stenosis and a stroke. She was evaluated and eventually sent to [facility] unit. The patient was readmitted to [facility] in April with weakness and confusion. She eventually was sent back to [facility]. The patient was brought to the [facility] room [facility], [facility] her right hip. She had been given Valium and hydroxyzine. She complained of hip pain. She was brought to the emergency room and found to have a hip fracture. Earlier today, she underwent surgery for repair of the hip fracture. Cardiology consultation requested. There has been no history of chest pain, palpitations, syncope, edema. PAST MEDICAL HISTORY: Previous tonsillectomy, appendectomy, cholecystectomy. She has a history of fibromyalgia, chronic fatigue, spinal stenosis, degenerative joint disease, posttraumatic stress disorder, previous stroke. MEDICATIONS: Her medications at the jail consist of BuSpar, Zanaflex, aspirin, Mobic, Lipitor, Flomax, albuterol inhaler, Synthroid. ALLERGIES: SHE HAS PREVIOUS INTOLERANCE TO CODEINE AND TETRACYCLINE. SOCIAL HISTORY: She is a smoker. REVIEW OF SYSTEMS: The patient has a previous history of stroke. She has a history of asthma. No history of liver disease, kidney disease, cancer. She has a history of anxiety. PHYSICAL EXAMINATION: VITAL SIGNS: Her blood pressure 130/60, pulse 70. She is afebrile. HEENT: She is anicteric. Conjunctivae are pink. [place] [address] CONSULTATION Name: MACHELLE ESPINOZA Room: [address] IN [facility]#: [id number] Admission: 05/02/21 Attend Phys: Rosalina Millan MD Discharge: Date of : 45 Report #: [id number] NECK: Veins does not appear distended. CHEST: Clear to auscultation. CARDIAC: Regular rate and rhythm. ABDOMEN: Soft. EXTREMITIES: Had no edema. SKIN: Cool and dry. LABORATORY DATA: ECG shows an AV sequentially paced rhythm with P-wave sensing, ventricular capture. Her workup, she actually had an echocardiogram performed in March that showed normal left ventricular function with aortic sclerosis. No evidence of an intracardiac shunt by bubble study. Her workup in the emergency room yesterday, she had a chest x-ray that showed normal heart size, clear lung sweet. CT scan of the head performed yesterday showed no acute abnormality, small vessel ischemic changes. Her lab work, creatinine was 0.9, troponin 0.06. High sensitivity troponin was only 12. BNP 1897. TSH 1.2. Hemoglobin 12.7. IMPRESSION AND RECOMMENDATIONS: 1. Fall. The patient suffered a broken femur. Status post surgery earlier today. 2. History of high-degree atrioventricular block. Normal dual chamber pacemaker function. 3. History of confusion. Suspect dementia. 4. Previous history of stroke. 5. Anxiety. 6. Spinal stenosis. 7. Deconditioning. The patient is currently in rehabilitation. 8. Asthma. 9. Hyperlipidemia. The patient is on a statin drug. 10. Hypothyroid. The patient is on thyroid replacement. <ELECTRONICALLY SIGNED> By: Clarence Heart MD, FACC 05/05/21 1503 1149 1951Dlinn Heart MD, FACC /nt
--- NOTE | 2021-05-05 15:09 | NUR ---
Cm spoke with Pt's dtr, dtr does not want Pt to return to [facility]. Per dtr, referrals faxed to [facility] and [facility]. [facility] is able to accept Pt tomorrow for skilled. Updated Dr and dtr.
--- NOTE | 2021-05-05 18:40 | NUR ---
PATIENT HAS REMAINED A&OX4 WITH OCCASIONAL CONFUSION AT TIMES DURING SHIFT. BUSPIRONE RESTARTED PER DAUGHTER'S REQUEST. PATIENT CONTINUES TO BE ON 3-4L OXYGEN VIA NASAL CANNULA WITH CONTINUOUS PULSE OX ON. PUREWICK IN PLACE. MEDICATIONS ADMINISTERED ORDERED. CALL LIGHT AND FREQUENTLY USED ITEMS WITHIN REACH.
[2021-05-05 19:17] VITALS: BP 138/59
[2021-05-05 20:38] VITALS: BP 135/51
[2021-05-06 02:28] VITALS: BP 160/6
[2021-05-06 04:20] LABS: HEMATOCRIT 30.2 % (37.0-47.0); HEMOGLOBIN 9.8 gm/dL (12.0-15.0); MCH 30.9 pg (26.0-34.0); MCHC 32.3 g/dL (28.0-37.0); MCV 95.6 fL (80.0-100.0); MPV 7.6 fl. (7.2-11.1); RBC 3.16 mil/uL (4.20-5.00); RDW-CV 11.3 % (10.5-14.5); WBC 10.6 thou/uL (4.0-11.0)
[2021-05-06 04:30] LABS: CALCIUM 8.5 mg/dL (8.5-10.1); CREATININE 0.6 mg/dL (0.6-1.3); POTASSIUM 4.2 mmol/L (3.5-5.1)
[2021-05-06 04:41] VITALS: BP 160/64
--- NOTE | 2021-05-06 06:47 | NUR ---
PATIENT ALERT/ORIENTED X2; CONFUSED AND FORGETFUL. PT ON O2 @ 4LITERS PER NASAL CANNULA. PT VPACED ON IMPORT/EXPORT AGENT. PT WITH TWO SALINE LOCKS IN LT AND RT FOREARM; PATENT PT WITH PUREWICK IN PLACE. PT WITH DSG ON RT HIP; C/D/I. PT REQUESTED PAIN MEDICATION AT HS AND RECEIVED ONE HYDROCODONE. FREQUENTLY USED ITEMS AND CALL LIGHT WITHIN REACH. SIDERAILS UPX3 AND BED ALARM ON. WILL CONTINUE TO MONITOR.
[2021-05-06 08:00] VITALS: BP 146/63
[2021-05-06 12:00] VITALS: BP 128/51
--- NOTE | 2021-05-06 12:22 | NUR ---
Pt discharging to [facility] today via ambulane transport at 3pm. Faxed dc orders. Chart copied. Nurse report number is [phone]. Updated Pt's dtr.
[2021-05-06] MEDS ORDERED: ELIQUIS5 MG PO (12:47)
== END 2021-05-06 15:07 | DRG 521 ==
LOC: M.ERS 00:10 → M.2W 04:56 → M.TBA-ER 04:56 → M.2W 12:07
PROVIDERS: Emergency Medicine; Family Medicine; Internal Medicine; ADMIT Internal Medicine; ATTEND Internal Medicine
PROC: 0SRR01A Replacement of Right Hip Joint, Femoral Surface with Metal Synthetic Substitute, Uncemented, Open Approach (ICD-10-PCS; principal; 2021-05-03)
DX: S72.011A Unspecified intracapsular fracture of right femur, initial encounter for closed fracture (principal); G92 Toxic encephalopathy; J96.20 Acute and chronic respiratory failure, unspecified whether with hypoxia or hypercapnia; E43 Unspecified severe protein-calorie malnutrition; N39.0 Urinary tract infection, site not specified; I48.92 Unspecified atrial flutter; Z20.822 Contact with and (suspected) exposure to COVID-19; M19.90 Unspecified osteoarthritis, unspecified site; M81.0 Age-related osteoporosis without current pathological fracture; F41.9 Anxiety disorder, unspecified; M48.00 Spinal stenosis, site unspecified; E03.9 Hypothyroidism, unspecified; E78.5 Hyperlipidemia, unspecified; I44.30 Unspecified atrioventricular block; J44.9 Chronic obstructive pulmonary disease, unspecified; F43.10 Post-traumatic stress disorder, unspecified; B96.20 Unspecified Escherichia coli [E. coli] as the cause of diseases classified elsewhere; Z95.0 Presence of cardiac pacemaker; Z86.73 Personal history of transient ischemic attack (TIA), and cerebral infarction without residual deficits; Z90.49 Acquired absence of other specified parts of digestive tract; Z88.6 Allergy status to analgesic agent; Z88.1 Allergy status to other antibiotic agents; Z88.8 Allergy status to other drugs, medicaments and biological substances; Z68.22 Body mass index [BMI] 22.0-22.9, adult; Z79.82 Long term (current) use of aspirin; Z79.899 Other long term (current) drug therapy; W18.39XA Other fall on same level, initial encounter; Y93.89 Activity, other specified; Y92.89 Other specified places as the place of occurrence of the external cause; Y99.8 Other external cause status

== ENCOUNTER 2021-05-21 09:48 | Inpatient (IN) | payer MEDICARE ==
[~2021-05-21] VITALS: Ht 152.4 cm; Wt 45.4 kg
--- NOTE | ~2021-05-21 | EMS ---
[facility] [address] [place] [address] EMS Patient Care Report Name: ROSARIO ESPINOZA Room: [address] IN .R.#: [id number] Admission: 05/21/21 Attend Phys: Bertha Butterfield Discharge: Date of : 45 Report #: [id number] THIS REPORT FOR: //name// Report Transmitted: 05/22/2021 07:48 EMS Care Summary [facility] [place] Incident [id number] @ 05/21/2021 09:05 Incident Location [address] [place] [address] Patient Rosario Espinoza Female, 76 Years 1945 Patient Address [address] [place] [address] Patient History Anxiety disorder, unspecified,Pacemaker/AICD,Chronic Obstructive Pulmonary Disease (COPD),Hypotension, Patient Allergies , Chief Complaint Weakness Disposition Transported No Lights/[place] Dispatch Reason Sick Person Transported To [facility] Narrative [facility] WAS DISPATCHED TO THE LISTED LOCAL ASSISTED LIVING FACILITY ON ABNORMAL BEHAVIOR. ON SCENE, WE WERE MET AT THE DOOR OF THE FACILITY BY FACILITY STAFF. STAFF PROVIDED THREE (3) SETS OF BLOOD PRESSURES ( NOTED) AND STATED THEY JUST KEEP GETTING LOWER AND LOWER SO THEY CALLED 911. FACILITY STAFF DENIED ANY ABNORMAL BEHAVIOR AND STATED THIS WAS JUST A HYPOTENSIVE [facility] [address] [place] [address] EMS Patient Care Report Name: ROSARIO ESPINOZA Room: [address] IN [facility]#: [id number] Admission: 05/21/21 Attend Phys: Bertha Butterfield Discharge: Date of : 45 Report #: [id number] ISSUE. WE CONTACTED THE PATIENT IN HER ROOM, SHE WAS ALERT AND laying IN BED, EATING A piece OF toast. SHE HAD NO OBVIOUS IMMEDIATE LIFE THREATS OR SIGNS OF DISTRESS. [facility] ATTEMPTED TO GATHER PATIENT HISTORY FROM FACILITY STAFF BUT THEY WERE VERY UNEDUCATED ON THE PATIENTS HISTORY OR CURRENT STATUS, STATING "IM AN AGENCY NURSE." STAFF PROVIDED A PATIENT PACKET, TELLING US EVERYTHING WE NEED TO KNOW SHOULD BE IN THERE. THE PATIENT WAS CONNECTED TO THE MONITOR, A FULL SET OF VITALS WERE OBTAINED WHILE AN ASSESSMENT WAS COMPLETE. THE PATIENT denied ANY DIFFICULTY BREATHING (ON OXYGEN AT ALL TIMES), HEADACHE, NAUSEA, VISION IMPAIRMENTS, TINGLING OR NUMBNESS IN HER EXTREMITIES, CHEST PAIN OR PAIN OF ANY TYPE. THE PATIENT STATED SHE JUST FELT EXTREMELY WEAK. WE REVIEWED THE PATIENTS VITALS WITH HER, STATING WE REALLY NEEDED TO GET TO THE hospital. THE PATIENT WAS agitated beaus SHE wanted TO FINISH HER toast BECAUSE "IT WILL HELP RAISE MY BLOOD PRESSURE." WE EXPLAINED TO THE PATIENT THAT WAS NOT THE CASE AND SHE reluctantly GAVE US THE toast, AGREEING TO GO NOW. USING THE BEDS SHEET, [facility] CREW AND HOSPITAL STAFF MOVED the PATIENT OFF HER BED, ONTO THE STRETCHER WITHOUT INCIDENT. THE PATIENTS NASAL CANNULA WAS CONNECTED TO THE STRETCHERS oxygen TANK. THE PATIENT WAS SECURED WITH THE LAP BELTS THEN TRANSPORTED OUT TO THE AMBULANCE WERE SHE WAS LOADED AND SECURED WITHOUT INCIDENT. INSIDE THE AMBULANCE, THE PATIENT WAS RECONNECTED TO THE MONITOR A LEVEL OF consciousness WAS ESTABLISHED AND NEURO EXAM COMPLETE. PATIENT DEMOGRAPHICS WERE OBTAINED AN IV WAS SECURED. A BLOOD GLUCOSE WAS OBTAINED, FLUIDS WERE administered AND TRANSPORT WAS INITIATED. VITALS WERE MONITORED EN-ROUTE. AN ECG WAS OBTAINED. THE patient REMAINED stable AND talkative DURING TRANSPORT. AT DESTINATION, ALL MONITORING WAS REMOVED. THE PATIENT SIGNED THE PRIVACY AND TRANSFER FORM. SHE WAS UNLOADED FROM THE ambulance AND TAKEN INTO ROOM 15. USING THE STRETCHERS BLANKET, [facility] AND HOSPITAL STAFF MOVED THE PATIENT OFF THE STRETCHER, ONTO THE HOSPITAL BED WITHOUT INCIDENT. I GAVE RN CHU A VERBAL PATIENT REPORT. SHE signed THE RECEIVING FACILITY FORM, COMPLETING THE TRANSFER OF CARE. [facility] CLEARED THE CALL. Initial Vitals @09:23SpO2: 99, @09:29SpO2: 99, @09:29SpO2: 99, @09:30SpO2: 99, @09:34SpO2: 99, @09:39SpO2: 98, @09:29 @09:37 @09:15P: 77,R: 14,BP: 74/39, @09:29P: 70,R: 14,BP: 75/41, @09:39P: 68,R: 14,BP: 76/39, @PTABP: 82/45, @PTABP: 72/50, @PTABP: 66/45, @09:15GCS: 15, [place] [address] EMS Patient Care Report Name: ROSARIO ESPINOZA Room: [address] IN [facility]#: [id number] Admission: 05/21/21 Attend Phys: Bertha Butterfield Discharge: Date of : 45 Report #: [id number] @09:29GCS: 15, @09:39GCS: 15, @SITE PROJECT MANAGER @SITE PROJECT MANAGER @SITE PROJECT MANAGER @09:23 @09:31Glucose: 106, Assessments @09:13MENTAL:SKIN:HEENT:LUNG SOUNDS:ABDOMEN:PELVIS//GI:EXTREMITIES:PULSE:NEURO: Impression Hypotension Procedures @09:18Oxygen Complications: ,Response: Unchanged@09:29 cc () Site: Forearm-LeftResponse: UnchangedFailed@09:30 cc () Site: Other Peripheral (Not Listed)Response: UnchangedSucceeded@09:25 cc () Site: Forearm-LeftResponse: UnchangedFailed@09:293-Lead ECGResponse: UnchangedSucceeded@09:3712-Lead ECGResponse: UnchangedSucceeded Timeline SITE PROJECT MANAGER,BP: 82/45 M,PULSE: ,RR: R,SPO2: Ox,ETCO2: ,BG: ,PAIN: ,GCS: , SITE PROJECT MANAGER,BP: 72/50 M,PULSE: ,RR: R,SPO2: Ox,ETCO2: ,BG: ,PAIN: ,GCS: , SITE PROJECT MANAGER,BP: 66/45 M,PULSE: ,RR: R,SPO2: Ox,ETCO2: ,BG: ,PAIN: ,GCS: , SITE PROJECT MANAGER,BP: / M,PULSE: ,RR: R,SPO2: Ox,ETCO2: ,BG: ,PAIN: ,GCS: , SITE PROJECT MANAGER,BP: / M,PULSE: ,RR: R,SPO2: Ox,ETCO2: ,BG: ,PAIN: ,GCS: , SITE PROJECT MANAGER,BP: / M,PULSE: ,RR: R,SPO2: Ox,ETCO2: ,BG: ,PAIN: ,GCS: , 07:13,Call Received 09:05,Dispatch Notified 09:05,Psap Call 09:05,Dispatched 09:05,En Route 09:09,On Scene 09:13,At Patient 09:15,BP: 74/39 M,PULSE: 77,RR: 14 R,SPO2: Ox,ETCO2: ,BG: ,PAIN: ,GCS: , 09:15,BP: / M,PULSE: ,RR: R,SPO2: Ox,ETCO2: ,BG: ,PAIN: ,GCS: 15, 09:18,Oxygen Complications: ,,Response: Unchanged 09:23,BP: / M,PULSE: ,RR: R,SPO2: 99 Ox,ETCO2: ,BG: ,PAIN: ,GCS: , 09:23,BP: / M,PULSE: ,RR: R,SPO2: Ox,ETCO2: ,BG: ,PAIN: ,GCS: , 09:25, cc Site: Forearm-Left,Response: UnchangedFailed, 09:29, cc Site: Forearm-Left,Response: UnchangedFailed, 09:29,3-Lead ECG,Response: UnchangedSucceeded, 09:29,BP: / M,PULSE: ,RR: R,SPO2: 99 Ox,ETCO2: ,BG: ,PAIN: ,GCS: , 09:29,BP: / M,PULSE: ,RR: R,SPO2: 99 Ox,ETCO2: ,BG: ,PAIN: ,GCS: , [place] [address] EMS Patient Care Report Name: ROSARIO ESPINOZA Room: [address] IN [facility]#: [id number] Admission: 05/21/21 Attend Phys: Bertha Butterfield Discharge: Date of : 45 Report #: [id number] 09:29,BP: / M,PULSE: ,RR: R,SPO2: Ox,ETCO2: ,BG: ,PAIN: ,GCS: , 09:29,BP: 75/41 M,PULSE: 70,RR: 14 R,SPO2: Ox,ETCO2: ,BG: ,PAIN: ,GCS: , 09:29,BP: / M,PULSE: ,RR: R,SPO2: Ox,ETCO2: ,BG: ,PAIN: ,GCS: 15, 09:30, cc Site: Other Peripheral (Not Listed),Response: UnchangedSucceeded, 09:30,BP: / M,PULSE: ,RR: R,SPO2: 99 Ox,ETCO2: ,BG: ,PAIN: ,GCS: , 09:31,BP: / M,PULSE: ,RR: R,SPO2: Ox,ETCO2: ,B,PAIN: ,GCS: , 09:33,Depart Scene 09:34,BP: / M,PULSE: ,RR: R,SPO2: 99 Ox,ETCO2: ,BG: ,PAIN: ,GCS: , 09:37,12-Lead ECG,Response: UnchangedSucceeded, 09:37,BP: / M,PULSE: ,RR: R,SPO2: Ox,ETCO2: ,BG: ,PAIN: ,GCS: , 09:39,BP: / M,PULSE: ,RR: R,SPO2: 98 Ox,ETCO2: ,BG: ,PAIN: ,GCS: , 09:39,BP: 76/39 M,PULSE: 68,RR: 14 R,SPO2: Ox,ETCO2: ,BG: ,PAIN: ,GCS: , 09:39,BP: / M,PULSE: ,RR: R,SPO2: Ox,ETCO2: ,BG: ,PAIN: ,GCS: 15, 09:43,At Destination 10:02,Call Closed Disclaimer v1.1 Copyright 2020 [employer] This EMS Care Summary contains data elements from the applicable legal record (which may be displayed differently). It is designed to provide pertinent information for the following purposes: continuity of care, clinical quality, and state data reporting. The complete legal record is available to ED staff and administrators of the receiving hospital in ES's Patient Tracker. All data is provided "as is."
[~2021-05-21 09:48] MED LIST changes: +AMBIEN5 MG PO; +COLACE100 MG PO; +ELIQUIS5 MG PO; +FLOMAX0.4 MG PO; +LIDODERM1 EACH TRANSDERM; +MELATONIN5 MG SUBLING; +VENTOLIN HFA 1818 GM INH
[2021-05-21 09:54] VITALS: BP 87/40
[2021-05-21] MEDS ORDERED: MAPAP500 MG PO (10:14)
[2021-05-21] MEDS ORDERED: TYLOPHEN500 MG PO (10:16)
[2021-05-21] MEDS ORDERED: VITAMIN C500 M3 PO (10:17)
[2021-05-21] MEDS ORDERED: DULCOLAX10 MG RECTAL (10:20)
[2021-05-21] MEDS ORDERED: ZYRTEC10 M4 PO (10:24)
[2021-05-21] MEDS ORDERED: NEURONTIN100 MG PO (10:25)
[2021-05-21] MEDS ORDERED: MILK OF MA400 MG/5 M PO (10:27)
[2021-05-21] MEDS ORDERED: NORCO5 PO ×2 (10:28)
[2021-05-21] MEDS ORDERED: ONDANSETRON ODT4 MG PO (10:30)
[2021-05-21 10:31] LABS: ABSOLUTE BASOPHILS 0.1 thou/uL (0.0-0.2); ABSOLUTE EOSINOPHILS 0.1 thou/uL (0.0-0.7); ABSOLUTE LYMPHOCYTES 0.9 thou/uL (0.8-5.3); ABSOLUTE MONOCYTES 0.6 thou/uL (0.0-1.2); ABSOLUTE NEUTROPHILS 6.7 thou/uL (1.6-8.1); EOSINOPHILS 1.5 %; HEMOGLOBIN 10.4 gm/dL (12.0-15.0); LYMPHOCYTES 10.9 %; MCH 31.9 pg (26.0-34.0); MCHC 32.6 g/dL (28.0-37.0); MCV 97.8 fL (80.0-100.0); MONOCYTES 7.5 %; MPV 6.8 fl. (7.2-11.1); NUCLEATED RBCS 0 /100WBC; PLATELET COUNT* 457 thou/uL (150-400); POLYS 79.1 %; RBC 3.27 mil/uL (4.20-5.00); RDW-CV 13.1 % (10.5-14.5); WBC 8.4 thou/uL (4.0-11.0)
[2021-05-21] MEDS ORDERED: FEVERALL325 MG RECTAL (10:34)
[2021-05-21 10:39] LABS: ANION GAP < 0 mmol/L (7-16); BUN 37 mg/dL (7-18); CALCIUM 8.5 mg/dL (8.5-10.1); CHLORIDE 96 mmol/L (98-107); CO2 39 mmol/L (21-32); CREATININE 1.2 mg/dL (0.6-1.3); GLUCOSE 94 mg/dL (70-99); POTASSIUM 5.1 mmol/L (3.5-5.1); SODIUM 133 mmol/L (136-145)
[2021-05-21 10:50] LABS: ALBUMIN 3.2 g/dL (3.4-5.0); ALKALINE PHOSPHATASE 185 U/L (46-116); NT-PRO BRAIN NAT PEPTIDE 8944 pg/mL (<300); SGOT 122 U/L (15-37); SGPT 213 U/L (30-65); TOTAL BILIRUBIN 0.3 mg/dL (<0.1-1.0); TOTAL PROTEIN 6.8 g/dL (6.4-8.2)
--- NOTE | 2021-05-21 11:02 | EKG ---
[place] [address] ELECTROCARDIOGRAM REPORT Name: MACHELLE ESPINOZA Room: [facility]#: [id number] Admission: 05/21/21 Attend Phys: Discharge: Date of : 45 Date of Service: 05/21/21 0959 Report #: [id number] THIS REPORT FOR: //name// [facility] ED Test Date: 2021-05-21 Test Time: 09:59:32 Pat Name: MACHELLE ESPINOZA Department: Room: Gender: F Inspector Automatic Typewriter: : 1945 Requested By: Saleem Law Order Number: [id number] MD: Clarence Heart Measurements Intervals [place] Rate: 65 P: 71 MT: 212 QRS: 254 QRSD: 133 T: 42 QT: 438 QTc: 456 Interpretive Statements Atrial-sensed ventricular-paced rhythm No further analysis attempted due to paced rhythm Compared to ECG 05/02/2021 00:27:03 rate has slowed Electronically Signed On 05-21-2021 11:02:36 CDT by Clarence Heart [email or web address] <ELECTRONICALLY SIGNED> By: lCarence Heart MD, [facility] 05/21/21 1102 0959 0959 Clarence Heart MD, [facility] /EPI
--- NOTE | 2021-05-21 14:54 | NUR ---
CALLED DAUGHTER BOONE AT 1100 AND GAVE HER AN UP DATE ON PT. CALLED ROSEANNE SHOOK AGAIN AT 1454 AND INFORMED HER SHE HAS PNEUMONIA AND ELEVATED TROPONINS. INFORMED HER PT IS BEING ADMITTED TO THE HOSPITAL.
[2021-05-21 15:30] VITALS: BP 137/84
[2021-05-21 15:39] VITALS: BP 129/59
--- NOTE | 2021-05-21 18:33 | NUR ---
Assumed care at 1600. Pt is alert and oirented. Pt has periods of confusion. Fluid infusing per ordered. Will continue to monitor pt's and provide care for pt.
[2021-05-21 19:38] VITALS: BP 147/58
[2021-05-22] VITALS: BP 141/66
[2021-05-22 04:00] VITALS: BP 177/86
--- NOTE | 2021-05-22 06:20 | NUR ---
PT A&O, FORGETFUL, CONFUSED AT TIMES. VSS ON 3L NC (PT'S BASE LINE O2). IV FLUIDS INFUSING ODERED. INCONTINENT, PURWICK IN PLACE. V-PACED ON TELE MONITOR. PRN PAIN MED REQUESTED AND GIVEN ORDERED. WILL CONTINUE TO MONITOR.
[2021-05-22 09:00] VITALS: BP 165/81
[2021-05-22 09:04] LABS: ABSOLUTE BASOPHILS 0.1 thou/uL (0.0-0.2); ABSOLUTE EOSINOPHILS 0.1 thou/uL (0.0-0.7); ABSOLUTE LYMPHOCYTES 1.1 thou/uL (0.8-5.3); ABSOLUTE MONOCYTES 0.6 thou/uL (0.0-1.2); ABSOLUTE NEUTROPHILS 5.8 thou/uL (1.6-8.1); BASOPHILS 0.7 %; EOSINOPHILS 1.4 %; HEMATOCRIT 29.9 % (37.0-47.0); HEMOGLOBIN 9.7 gm/dL (12.0-15.0); LYMPHOCYTES 14.8 %; MCH 31.4 pg (26.0-34.0); MCHC 32.4 g/dL (28.0-37.0); MCV 96.8 fL (80.0-100.0); MONOCYTES 7.5 %; MPV 6.6 fl. (7.2-11.1); NUCLEATED RBCS 0 /100WBC; PLATELET COUNT* 447 thou/uL (150-400); POLYS 75.6 %; RBC 3.09 mil/uL (4.20-5.00); RDW-CV 13.2 % (10.5-14.5); WBC 7.7 thou/uL (4.0-11.0)
[2021-05-22 09:17] LABS: ALBUMIN 2.9 g/dL (3.4-5.0); CALCIUM 8.3 mg/dL (8.5-10.1); CREATININE 0.7 mg/dL (0.6-1.3); MAGNESIUM 2.1 mg/dL (1.8-2.4); POTASSIUM 4.5 mmol/L (3.5-5.1); TOTAL BILIRUBIN 0.3 mg/dL (<0.1-1.0); TOTAL PROTEIN 6.3 g/dL (6.4-8.2)
[2021-05-22 10:13] LABS: ESR (SEDRATE) 13 mm/hr (0-30)
[2021-05-22 12:28] VITALS: BP 139/85
[2021-05-22 17:23] VITALS: BP 142/79
[2021-05-22 18:19] LABS: URINE BILIRUBIN NEGATIVE (Negative); URINE BLOOD 1+ (Negative); URINE CLARITY CLEAR; URINE COLOR YELLOW; URINE GLUCOSE-RANDOM NEGATIVE (Negative); URINE KETONES NEGATIVE (Negative); URINE LEUKOCYTES TRACE (Negative); URINE NITRITE NEGATIVE (Negative); URINE PROTEIN NEGATIVE (Negative); URINE UROBILINOGEN 0.2 E.U./dl (0.2-1.0)
[2021-05-22 18:32] LABS: SQUAMOUS 0-3 Few /LPF (0-3); URINE RBC 0-2 Rare /HPF (0-2); URINE WBC 0-5 Rare /HPF (0-5)
[2021-05-22 18:33] LABS: CASTS None Seen /LPF (None Seen); CRYSTALS None Seen /LPF (None Seen)
--- NOTE | 2021-05-22 19:40 | NUR ---
Assumed care at 0700. Pt is alert and oriented, however, pt has moments of mood swings. Fluid discontinued. Call light within reach. Will continue plan of care.
[2021-05-22 20:21] VITALS: BP 149/66
[2021-05-23] VITALS: BP 145/67
[2021-05-23 04:00] VITALS: BP 136/58
--- NOTE | 2021-05-23 04:02 | NUR ---
PT A&OX4, FORGETFUL AND CONFUSED AT TIMES. VSS ON 3L NC (SAME AT HOME). IV SALINE LOCKED. V-PACED ON TELE MONITOR. NO CO PAIN OR DISCOMFORT THIS SHIFT AT THIS TIME. PT SLEEPING WELL. WILL CONTINUE TO MONITOR.
[2021-05-23 04:44] LABS: HEMATOCRIT 30.9 % (37.0-47.0); HEMOGLOBIN 10.2 gm/dL (12.0-15.0); MCH 31.8 pg (26.0-34.0); MCHC 32.9 g/dL (28.0-37.0); MCV 96.5 fL (80.0-100.0); MPV 6.6 fl. (7.2-11.1); RBC 3.2 mil/uL (4.20-5.00)
[2021-05-23 05:04] LABS: CALCIUM 8.3 mg/dL (8.5-10.1); CREATININE 0.7 mg/dL (0.6-1.3)
[2021-05-23 05:06] LABS: POTASSIUM 3.5 mmol/L (3.5-5.1)
[2021-05-23 07:28] LABS: ALBUMIN 2.7 g/dL (3.4-5.0); DIRECT BILIRUBIN 0.1 mg/dL (<0.1-0.3); TOTAL BILIRUBIN 0.4 mg/dL (<0.1-1.0); TOTAL PROTEIN 5.8 g/dL (6.4-8.2)
[2021-05-23 08:00] VITALS: BP 147/66
[2021-05-23 11:25] VITALS: BP 110/57
[2021-05-23 16:47] VITALS: BP 143/66
--- NOTE | 2021-05-23 17:19 | NUR ---
PATIENT RESTING IN BED EATING DINNER. ALERT AND ORIENTED X3 WITH SOME CONFUSION. SAT 99% ON 2L OXYGEN, NASAL CANNULA. HEALING INCISION TO RIGHT HIP, DRESSING C/D/I. PERWICK IN PLACE TO CONTINUOUS SUCTION, WITHOUT COMPLICATIONS. PACEMAKER TO RIGHT CHEST, V-PACED. IV TO LEFT SHOULDER, SALINE LOCKED, PATENT. BED IN LOW/LOCKED POSITION. BED ALARM ON. CALL LIGHT WITHIN REACH. HYDROCODONE X1 GIVEN FOR BACK/HIP PAIN. ALL QUESTIONS AND CONCERNS ADDRESSED.
[2021-05-23 21:12] VITALS: BP 118/56
[2021-05-24 00:21] VITALS: BP 131/60
[2021-05-24 04:04] LABS: ABSOLUTE NEUTROPHILS 3.5 thou/uL (1.6-8.1); HEMOGLOBIN 9.9 gm/dL (12.0-15.0)
[2021-05-24 04:08] LABS: ABSOLUTE BASOPHILS 0.1 thou/uL (0.0-0.2); ABSOLUTE EOSINOPHILS 0.4 thou/uL (0.0-0.7); ABSOLUTE LYMPHOCYTES 1.3 thou/uL (0.8-5.3); ABSOLUTE MONOCYTES 0.8 thou/uL (0.0-1.2); EOSINOPHILS 7.3 %; HEMATOCRIT 29.9 % (37.0-47.0); LYMPHOCYTES 21.1 %; MCH 32.1 pg (26.0-34.0); MCHC 33.1 g/dL (28.0-37.0); MONOCYTES 13.7 %; MPV 6.8 fl. (7.2-11.1); NUCLEATED RBCS 0 /100WBC; PLATELET COUNT* 382 thou/uL (150-400); POLYS 56.9 %; RBC 3.08 mil/uL (4.20-5.00); RDW-CV 13.6 % (10.5-14.5); WBC 6.1 thou/uL (4.0-11.0)
[2021-05-24 04:35] LABS: ALBUMIN 2.7 g/dL (3.4-5.0); ALKALINE PHOSPHATASE 113 U/L (46-116); ANION GAP < 0 mmol/L (7-16); BUN 15 mg/dL (7-18); CALCIUM 8.2 mg/dL (8.5-10.1); CHLORIDE 101 mmol/L (98-107); CO2 42 mmol/L (21-32); CREATININE 0.8 mg/dL (0.6-1.3); GLUCOSE 84 mg/dL (70-99); POTASSIUM 3.5 mmol/L (3.5-5.1); SGOT 39 U/L (15-37); SGPT 128 U/L (30-65); SODIUM 141 mmol/L (136-145); TOTAL BILIRUBIN 0.5 mg/dL (<0.1-1.0); TOTAL PROTEIN 5.8 g/dL (6.4-8.2)
[2021-05-24 06:11] VITALS: BP 148/56
--- NOTE | 2021-05-24 06:55 | NUR ---
PT A&OX4, FORGETFUL. IV SALINE LOCKED. VSS ON 2L O2 NC. PT REPOSITONED Q2H. PRN PO PAIN MED REQUESTED AND GIVEN ORDERED. V-PACED ON TELE MONITOR. PUREWICK IN USE.
[2021-05-24 08:00] VITALS: BP 139/67
--- NOTE | 2021-05-24 11:35 | EKG ---
[place] [address] ELECTROCARDIOGRAM REPORT Name: OLGAMACHELLE R Room: [address] ADM IN .R.#: [id number] Admission: 05/21/21 Attend Phys: Sanchez Ambrosio Discharge: Date of : 45 Date of Service: 05/22/21909 Report #: [id number] THIS REPORT FOR: //name// [facility] Test Date: 2021-05-22 Test Time: 09:10:31 Pat Name: MACHELLE ESPINOZA Department: Room: [address] Gender: F [employer] Supervisor: SB : 1945 Requested By: Faith Gallegos Order Number: [id number] Reading MD: Jose Dominguez Measurements Intervals [place] Rate: 101 P: 232 WV: 214 QRS: 260 QRSD: 134 T: 78 QT: 367 QTc: 476 Interpretive Statements Atrial sensed ventricular-paced rhythm No further analysis attempted due to paced rhythm Compared to ECG 05/21/2021 09:59:32 Atrial-sensed ventricular-paced complex(es) persist Electronically Signed On 05-24-2021 11:35:28 CDT by Jose Dominguez [email or web address] <ELECTRONICALLY SIGNED> By: Jose Dominguez MD, FAC 05/24/21 1135 0910 0910 Jose Dominguez MD, FAC /EPI
--- NOTE | 2021-05-24 14:02 | NUR ---
Pt known to this CM from previous hospital stay. Pt was dc on 05/06 to [facility]. CM spoke with Tika at SNF, Pt is able to return at dc, CM faxed updated clinicals. Therapies to see. Pt normally resides at home. Uses a cane for mobility. Hx of ARU. CM left for Pt's dtr to confirm dc plan of back to [place]. Anticipate dc tomorrow.
[2021-05-24 14:03] VITALS: BP 134/54
[2021-05-24 16:10] VITALS: BP 110/37
--- NOTE | 2021-05-24 17:46 | 2DMMODE ---
[place] [address] 2 D/M-MODE ECHOCARDIOGRAM Name: MACHELLE ESPINOZA Melvin Room: [address] IN [place].#: [id number] Admission: 05/21/21 Attend Phys: Sanchez Ambrosio Discharge: Date of : 45 Date of Service: 05/24/21 1745 Report #: [id number] THIS REPORT FOR: cc: FAM - No family physician/PCP FAM - No family physician/PCP Jose Dominguez MD [facility] ~ APPROVED REPORT Study performed: 05/24/2021 14:35:07 EXAM: Comprehensive 2D, Doppler, and color-flow Echocardiogram Patient Location: In-Patient Room #: [facility] Status: routine BSA: 1.39 HR: 86 bpm BP: 139/67 mmHg Rhythm: NSR Other Information Study Quality: Good Indications Congestive Heart Failure 2D Dimensions IVSd: 8.23 (7-11mm) LVOT Diam: 19.95 (18-24mm) LVDd: 40.99 mm PWd: 8.82 (7-11mm) Ascending Ao: 28.13 (22-36mm) LVDs: 19.98 (25-40mm) Aortic Root: 30.71 mm Volumes Left Atrial Volume (Systole) LA ESV Index: 24.90 mL/m2 Aortic Valve AoV Peak Stevan.: 1.38 m/s AO Peak Gr.: 7.56 mmHg LVOT Max P.76 mmHg AO Mean Gr.: 4.38 mmHg LVOT Mean P.38 mmHg LVOT Max V: 0.83 m/s AO V2 VTI: 24.72 cm LVOT Mean V: 0.54 m/s JARET (VTI): 2.05 cm2 LVOT V1 VTI: 16.20 [place] [address] 2 D/M-MODE ECHOCARDIOGRAM Name: MACHELLE ESPINOZA Room: [address] IN .R.#: [id number] Admission: 05/21/21 Attend Phys: Sanchez Ambrosio Discharge: Date of : 45 Date of Service: 05/24/21 8775 Report #: [id number] Mitral Valve E/A Ratio: 0.85 MV Decel. Time: 189.98 ms MV E Max Stevan.: 0.94 m/s MV PHT: 55.09 ms MVA (PHT): 3.99 cm2 Pulmonary Valve PV Peak Stevan.: 0.97 m/s PV Peak Gr.: 3.73 mmHg Tricuspid Valve RAP Estimate: 5.00 mmHg TR Peak Gr.: 33.69 mmHg RVSP: 38.00 mmHg PA Pressure: 38.00 mmHg Left Ventricle The left ventricle is normal size. There is normal LV segmental wall motion. There is normal left ventricular wall thickness. Left ventricular systolic function is normal. The left ventricular ejection fraction is within the normal range. LVEF is 55-60%. Grade I - abnormal relaxation pattern. Right Ventricle The right ventricle is normal size. The right ventricular systolic function is normal. Pacemaker lead is present in the right ventricle. Atria The left atrium size is normal. Right atrium is mildly dilated. Aortic Valve The aortic valve is normal in structure. No aortic regurgitation is present. There is no aortic valvular stenosis. Mitral Valve The mitral valve is normal in structure. Trace mitral regurgitation. No evidence of mitral valve stenosis. Tricuspid Valve The tricuspid valve is normal in structure. Mild tricuspid regurgitation. Mild pulmonary hypertension. Pulmonic Valve The pulmonary valve is normal in structure. There is no pulmonic [place]vular [place] [address] 2 D/M-MODE ECHOCARDIOGRAM Name: MACHELLE ESPINOZA [place] Room: [address] IN [facility]#: [id number] Admission: 05/21/21 Attend Phys: Sanchez Ambrosio Discharge: Date of : 45 Date of Service: 05/24/21 1745 Report #: [id number] Great Vessels The aortic root is normal in size. IVC is normal in size and collapses >50% with inspiration. Pericardium There is no pericardial effusion. <Conclusion> There is normal left ventricular wall thickness. Left ventricular systolic function is normal. The left ventricular ejection fraction is within the normal range. LVEF is 55-60%. Grade I - abnormal relaxation pattern. The right ventricle is normal size. The left atrium size is normal. Right atrium is mildly dilated. The aortic valve is normal in structure. The mitral valve is normal in structure. The tricuspid valve is normal in structure. Mild tricuspid regurgitation. Mild pulmonary hypertension. IVC is normal in size and collapses >50% with inspiration. There is no pericardial effusion. There is normal LV segmental wall motion. Pacemaker lead is present in the right ventricle. <ELECTRONICALLY SIGNED> By: Jose Dominguez MD, FACC 05/24/21 [phone] Jose Dominguez MD, FACC /INF
--- NOTE | 2021-05-24 18:24 | NUR ---
PATIENT RESTING IN BED. IV TO LEFT UPPER ARM, SALINE LOCKED, PATENT. PACEMAKER TO LEFT UPPER CHEST, V-PACED. PERWICK IN PLACE. SAT 98% ON 2L, NASAL CANNULA. ALERT AND ORIENTED X3. BED IN LOW/LOCKED POSITION. CALL LIGHT WITHIN REACH. ALL QUESTIONS AND CONCERNS ADDRESSED.
[2021-05-24 20:29] VITALS: BP 137/59
[2021-05-25 01:17] VITALS: BP 131/50
[2021-05-25 05:10] VITALS: BP 145/67
--- NOTE | 2021-05-25 06:54 | NUR ---
PT IS STABLE, REMAINS FREE FROM INJURY. CONTINUE IV ABT. STABLE ON 2L. VITALS WNL. PERIPHERAL IV REPLACED. PURWICK CHANGED AND IN PLACE. RIGHT HIP DRESSING INTACT/DRY/CLEAN.
[2021-05-25 08:00] VITALS: BP 141/60
--- NOTE | 2021-05-25 08:25 | NUR ---
PT TO BE DC FROM [facility]. HAS REFUSED 3 CONSECUTIVE DAYS TO PARTICIPATE
[2021-05-25] MEDS ORDERED: CEFDINIR300 MG PO (09:23)
[2021-05-25 11:18] VITALS: BP 146/67
--- NOTE | 2021-05-25 12:15 | NUR ---
Pt discharging back to [facility], ambulance to [facility] and transport at 3pm. Faxed dc orders. Chart copied. Nurse report number is [id number]. Updated Pt's dtr.
--- NOTE | 2021-05-25 15:22 | NUR ---
Assumed care of pt at 0730. Pt A&OX4, afebrile, no c/o pain. Pt agitated and anxious. Lungs are clear, diminished, pt on 2.5L NC. Pt is Vpaced, S1S2 heard, palpable pulses, no edema noted. Pt has a Purwik with yellow urine output, BM today, 05/25/21. Pt has a 20G LW PIV with Zosyn infusing, PIV patent, no s/s of infiltration. Pt and RN discussed discharge paperwork. RN called report to Riana Rosario to NICOLAS Mane at 1430. Pt left the unit in stable condition at 1455 in the presence of EMS staff and pt's daughter. Pt left with all belongings brought with her. PIV d/c'd and pressure dressing in place.
== END 2021-05-25 15:00 | DRG 871 ==
LOC: M.ERS 09:48 → M.2W 12:05 → M.TBA-ER 12:05 → M.2W 15:24
PROVIDERS: Emergency Medicine Emergency Medical Services; Internal Medicine; ADMIT Internal Medicine; ATTEND Internal Medicine
DX: A41.50 Gram-negative sepsis, unspecified (principal); R65.21 Severe sepsis with septic shock; J96.01 Acute respiratory failure with hypoxia; I21.A1 Myocardial infarction type 2; J15.6 Pneumonia due to other Gram-negative bacteria; E87.1 Hypo-osmolality and hyponatremia; N39.0 Urinary tract infection, site not specified; Z20.822 Contact with and (suspected) exposure to COVID-19; M19.90 Unspecified osteoarthritis, unspecified site; M81.0 Age-related osteoporosis without current pathological fracture; I95.9 Hypotension, unspecified; I50.9 Heart failure, unspecified; R74.01 Elevation of levels of liver transaminase levels; B95.2 Enterococcus as the cause of diseases classified elsewhere; Z90.49 Acquired absence of other specified parts of digestive tract; Z86.73 Personal history of transient ischemic attack (TIA), and cerebral infarction without residual deficits; Z88.6 Allergy status to analgesic agent; Z88.1 Allergy status to other antibiotic agents; Z88.8 Allergy status to other drugs, medicaments and biological substances; Z79.899 Other long term (current) drug therapy